=== PATIENT | male | born 1960 | race Caucasian/White ===

== ENCOUNTER 2017-05-01 16:06 | Inpatient (IN) | payer MEDICAID ==
[~2017-05-01] VITALS: Ht 170.2 cm; Wt 105.2 kg
[2017-05-01] MEDS ORDERED: SODIUM CHLORIDE 0.9% 1,000 ML IV ONE (16:17)
[2017-05-01] MEDS ORDERED: SODIUM CHLORIDE FLUSH 10ML SYR IVF ONE (16:30)
[2017-05-01] MEDS ORDERED: CEFTRIAXONE PMX 1GM/50ML 50 ML IVPB ONE (16:30)
[2017-05-01] MEDS ORDERED: CEFTRIAXONE PMX 1GM/50ML 50 ML ONE (16:43)
[2017-05-01 17:05] LABS: BLOOD UREA NITROGEN 15 mg/dL (7-18)
[2017-05-01 17:10] LABS: ASPARTATE AMINO TRANSFERASE 26 U/L (15-37)
[2017-05-01 17:26] LABS: DIFF TOTAL CELLS COUNTED 100 CELL DIFF
[2017-05-01 17:27] LABS: VERIFY COUNTS? YES
[2017-05-01] MEDS ORDERED: SODIUM CHLORIDE FLUSH 10ML SYR IVF PRN (18:30)
[2017-05-01] MEDS ORDERED: NS + 20MEQ KCL 1,000 ML IV SCH (18:38)
[2017-05-01] MEDS ORDERED: POLYETHYLENE GLYCOL 17 GM PACKET PO PRN (19:00)
[2017-05-01] MEDS ORDERED: DOCUSATE 100 MG CAPSULE PO PRN (19:00)
[2017-05-01] MEDS ORDERED: morphine SULFATE 10 MG/ML, 1ML IVPush PRN (19:00)
[2017-05-01] MEDS ORDERED: ACETAMINOPHEN 325 MG TABLET PO PRN (19:00)
[2017-05-01] MEDS ORDERED: ONDANSETRON 2MG/ML, 2ML IVPush PRN (19:00)
[2017-05-01 21:15] VITALS: BP 206/115
[2017-05-01] MEDS: ENOXAPARIN 40 MG/0.4 ML SQ SCH (21:36)
[2017-05-01] MEDS: FUROSEMIDE 40 MG/4 ML IV SCH (21:36)
[2017-05-01] MEDS: AMPICILLIN/SULBACTAM 3 GM in SODIUM CHLORIDE 0.9% 100 ML IV SCH (21:36)
[2017-05-01] MEDS: LABETALOL 5MG/ML, 20ML IVPush PRN (22:00)
[2017-05-01] MEDS ORDERED: POTASSIUM CHLORIDE 20 MEQ TAB.ER.PRT PO ONE (22:30)
[2017-05-02] MEDS: LABETALOL 5MG/ML, 20ML IVPush PRN ×2 (02:52→15:09)
[2017-05-02 02:54] VITALS: BP 196/112
[2017-05-02] MEDS: AMPICILLIN/SULBACTAM 3 GM in SODIUM CHLORIDE 0.9% 100 ML IV SCH ×4 (03:38→21:43)
[2017-05-02] MEDS: HYDROcodone/APAP 5/325 TABLET PO PRN ×3 (03:44→23:39)
[2017-05-02 05:31] LABS: BLOOD UREA NITROGEN 17 mg/dL (7-18)
[2017-05-02 06:37] VITALS: BP 157/96
[2017-05-02] MEDS ORDERED: POTASSIUM CHLORIDE 20 MEQ TAB.ER.PRT PO ONE ×2 (08:30→18:00)
[2017-05-02] MEDS ORDERED: MAGNESIUM SULFATE PMX 4GM/100M 100 ML IV ONE (09:00)
[2017-05-02] MEDS: FUROSEMIDE 40 MG/4 ML IV SCH ×2 (09:27→17:17)
[2017-05-02] MEDS: SENNA/DOCUSATE TABLET PO SCH (09:27)
[2017-05-02 14:15] VITALS: BP 174/99
[2017-05-02 17:14] VITALS: BP 135/76
[2017-05-02 18:45] VITALS: BP 153/92
[2017-05-02] MEDS: ENOXAPARIN 40 MG/0.4 ML SQ SCH (19:38)
[2017-05-03 02:00] VITALS: BP 159/82
[2017-05-03] MEDS: AMPICILLIN/SULBACTAM 3 GM in SODIUM CHLORIDE 0.9% 100 ML IV SCH ×4 (03:39→21:04)
[2017-05-03 06:35] LABS: BLOOD UREA NITROGEN 18 mg/dL (7-18)
[2017-05-03 06:45] VITALS: BP 162/119
[2017-05-03] MEDS: HYDROcodone/APAP 5/325 TABLET PO PRN ×3 (06:47→21:02)
[2017-05-03] MEDS: hydrALAzine 20 MG/ML, 1ML IV PRN (08:47)
[2017-05-03] MEDS: SENNA/DOCUSATE TABLET PO SCH (08:47)
[2017-05-03] MEDS: FUROSEMIDE 40 MG/4 ML IV SCH (08:47)
[2017-05-03] MEDS: POTASSIUM CHLORIDE 20 MEQ TAB.ER.PRT PO SCH ×2 (09:43→16:20)
[2017-05-03 14:00] VITALS: BP 160/93
[2017-05-03 20:35] VITALS: BP 157/100
[2017-05-03] MEDS: ENOXAPARIN 40 MG/0.4 ML SQ SCH (21:04)
[2017-05-04] VITALS (9 sets, daily range): BP systolic 146–178; BP diastolic 86–121
[2017-05-04] MEDS: HYDROcodone/APAP 5/325 TABLET PO PRN ×2 (01:12→10:06)
[2017-05-04] MEDS: AMPICILLIN/SULBACTAM 3 GM in SODIUM CHLORIDE 0.9% 100 ML IV SCH ×4 (03:40→21:05)
[2017-05-04 05:08] LABS: BLOOD UREA NITROGEN 21 mg/dL (7-18)
[2017-05-04] MEDS: SENNA/DOCUSATE TABLET PO SCH (07:53)
[2017-05-04] MEDS: POTASSIUM CHLORIDE 20 MEQ TAB.ER.PRT PO SCH (07:53)
[2017-05-04] MEDS: FUROSEMIDE 40 MG/4 ML IV SCH (07:53)
[2017-05-04] MEDS ORDERED: LISINOPRIL 10 MG TABLET PO SCH (09:00)
[2017-05-04] MEDS: ENALAPRILAT 1.25 MG/ML, 2ML IV PRN ×2 (09:34→15:34)
[2017-05-04] MEDS: hydrALAzine 20 MG/ML, 1ML IV PRN (10:06)
[2017-05-04] MEDS: ENOXAPARIN 40 MG/0.4 ML SQ SCH (21:05)
[2017-05-05 02:18] VITALS: BP 164/111
[2017-05-05] MEDS: HYDROcodone/APAP 5/325 TABLET PO PRN ×3 (02:21→21:18)
[2017-05-05] MEDS: AMPICILLIN/SULBACTAM 3 GM in SODIUM CHLORIDE 0.9% 100 ML IV SCH ×3 (04:27→15:30)
[2017-05-05 05:24] LABS: BLOOD UREA NITROGEN 16 mg/dL (7-18)
[2017-05-05 07:31] VITALS: BP 163/111
[2017-05-05] MEDS: SENNA/DOCUSATE TABLET PO SCH (07:58)
[2017-05-05] MEDS: LISINOPRIL 20 MG TABLET PO SCH (08:00)
[2017-05-05] MEDS ORDERED: VANCOMYCIN PER PHARMACY MC PRN (08:00)
[2017-05-05] MEDS ORDERED: PHARMACOKINETIC CONSULTATION MC ONE (08:30)
[2017-05-05] MEDS ORDERED: PHARMACOKINETIC MONITORING MC PRN (08:30)
[2017-05-05] MEDS ORDERED: VANCOMYCIN 2,000 MG in SODIUM CHLORIDE 0.9% 500 ML IV SCH (09:00)
[2017-05-05] MEDS ORDERED: DIPHENHYDRAMINE 50 MG/ML, 1ML IVPush ONE (12:00)
[2017-05-05 12:44] VITALS: BP 151/82
[2017-05-05] MEDS: CEFTAROLINE 600 MG in SODIUM CHLORIDE 0.9% 100 ML IV SCH (17:29)
[2017-05-05 19:36] VITALS: BP 172/97
[2017-05-05] MEDS: ENOXAPARIN 40 MG/0.4 ML SQ SCH (21:15)
[2017-05-05 21:19] VITALS: BP 165/99
[2017-05-06 02:49] VITALS: BP 169/100
[2017-05-06 05:37] LABS: BLOOD UREA NITROGEN 24 mg/dL (7-18)
[2017-05-06] MEDS: CEFTAROLINE 600 MG in SODIUM CHLORIDE 0.9% 100 ML IV SCH ×2 (06:23→17:19)
[2017-05-06 07:54] VITALS: BP 195/107
[2017-05-06] MEDS: SENNA/DOCUSATE TABLET PO SCH (08:03)
[2017-05-06] MEDS: LISINOPRIL 20 MG TABLET PO SCH ×2 (08:35→20:25)
[2017-05-06] MEDS: AMLODIPINE 5 MG TABLET PO SCH ×2 (10:25→20:25)
[2017-05-06] MEDS: HYDROcodone/APAP 5/325 TABLET PO PRN ×2 (12:06→19:09)
[2017-05-06 12:34] VITALS: BP 133/86
[2017-05-06] MEDS: FUROSEMIDE 20 MG/2 ML IV SCH (19:30)
[2017-05-06 19:47] VITALS: BP 147/88
[2017-05-06] MEDS: ENOXAPARIN 40 MG/0.4 ML SQ SCH (20:25)
[2017-05-07] MEDS: HYDROcodone/APAP 5/325 TABLET PO PRN ×4 (01:30→23:56)
[2017-05-07 03:32] VITALS: BP 133/85
[2017-05-07] MEDS: CEFTAROLINE 600 MG in SODIUM CHLORIDE 0.9% 100 ML IV SCH ×2 (05:46→18:44)
[2017-05-07 07:43] VITALS: BP 142/83
[2017-05-07] MEDS: FUROSEMIDE 20 MG/2 ML IV SCH (09:00)
[2017-05-07] MEDS: SENNA/DOCUSATE TABLET PO SCH (09:00)
[2017-05-07] MEDS: AMLODIPINE 5 MG TABLET PO SCH ×2 (10:21→20:36)
[2017-05-07] MEDS: LISINOPRIL 20 MG TABLET PO SCH ×2 (10:21→20:36)
[2017-05-07 12:27] VITALS: BP 158/96
[2017-05-07 19:15] VITALS: BP 127/82
[2017-05-07] MEDS: ENOXAPARIN 40 MG/0.4 ML SQ SCH (20:36)
[2017-05-08 02:22] VITALS: BP 136/88
[2017-05-08] MEDS: CEFTAROLINE 600 MG in SODIUM CHLORIDE 0.9% 100 ML IV SCH ×2 (05:22→17:23)
[2017-05-08 08:50] VITALS: BP 149/82
[2017-05-08] MEDS: SENNA/DOCUSATE TABLET PO SCH (09:00)
[2017-05-08] MEDS: FUROSEMIDE 20 MG/2 ML IV SCH (09:00)
[2017-05-08] MEDS: LISINOPRIL 20 MG TABLET PO SCH ×2 (09:02→20:47)
[2017-05-08] MEDS: AMLODIPINE 5 MG TABLET PO SCH ×2 (09:02→20:48)
[2017-05-08] MEDS: HYDROcodone/APAP 5/325 TABLET PO PRN ×3 (09:03→20:48)
[2017-05-08 16:50] VITALS: BP 129/80
[2017-05-08] MEDS: ENOXAPARIN 40 MG/0.4 ML SQ SCH (20:50)
[2017-05-08 20:55] VITALS: BP 177/98
[2017-05-09 01:05] VITALS: BP 149/84
[2017-05-09] MEDS: CEFTAROLINE 600 MG in SODIUM CHLORIDE 0.9% 100 ML IV SCH ×2 (05:27→16:59)
[2017-05-09 07:44] VITALS: BP 135/74
[2017-05-09] MEDS: FUROSEMIDE 20 MG/2 ML IV SCH (08:37)
[2017-05-09] MEDS: SENNA/DOCUSATE TABLET PO SCH (08:38)
[2017-05-09] MEDS: LISINOPRIL 20 MG TABLET PO SCH ×2 (08:38→21:25)
[2017-05-09] MEDS: HYDROcodone/APAP 5/325 TABLET PO PRN ×3 (08:38→21:24)
[2017-05-09] MEDS: AMLODIPINE 5 MG TABLET PO SCH ×2 (08:38→21:24)
[2017-05-09 15:04] VITALS: BP 123/83
[2017-05-09 20:00] VITALS: BP 135/73
[2017-05-09] MEDS: ENOXAPARIN 40 MG/0.4 ML SQ SCH (21:24)
[2017-05-10 02:08] VITALS: BP 125/73
[2017-05-10] MEDS: CEFTAROLINE 600 MG in SODIUM CHLORIDE 0.9% 100 ML IV SCH ×2 (05:10→17:25)
[2017-05-10] MEDS: HYDROcodone/APAP 5/325 TABLET PO PRN ×3 (05:19→19:25)
[2017-05-10] MEDS: SENNA/DOCUSATE TABLET PO SCH (09:00)
[2017-05-10] MEDS: FUROSEMIDE 20 MG/2 ML IV SCH (09:00)
[2017-05-10 09:26] VITALS: BP 133/69
[2017-05-10] MEDS: LISINOPRIL 20 MG TABLET PO SCH ×2 (10:26→20:51)
[2017-05-10] MEDS: AMLODIPINE 5 MG TABLET PO SCH ×2 (10:26→20:51)
[2017-05-10 14:09] VITALS: BP 142/70
[2017-05-10 19:52] VITALS: BP 133/76
[2017-05-10] MEDS: ENOXAPARIN 40 MG/0.4 ML SQ SCH (20:52)
[2017-05-10] MEDS ORDERED: ONDANSETRON 2MG/ML, 2ML IVPush PRN (21:00)
[2017-05-10] MEDS ORDERED: POLYETHYLENE GLYCOL 17 GM PACKET PO PRN (21:00)
[2017-05-10] MEDS ORDERED: morphine SULFATE 10 MG/ML, 1ML IVPush PRN (21:00)
[2017-05-10] MEDS ORDERED: DOCUSATE 100 MG CAPSULE PO PRN (21:00)
[2017-05-11] MEDS: HYDROcodone/APAP 5/325 TABLET PO PRN ×3 (01:08→18:10)
[2017-05-11 02:30] VITALS: BP 142/75
[2017-05-11] MEDS: CEFTAROLINE 600 MG in SODIUM CHLORIDE 0.9% 100 ML IV SCH ×2 (05:19→16:49)
[2017-05-11 07:00] VITALS: BP 135/78
[2017-05-11] MEDS: SENNA/DOCUSATE TABLET PO SCH (09:00)
[2017-05-11] MEDS: LISINOPRIL 20 MG TABLET PO SCH ×2 (09:11→21:06)
[2017-05-11] MEDS: FUROSEMIDE 20 MG/2 ML IV SCH (09:11)
[2017-05-11] MEDS: AMLODIPINE 5 MG TABLET PO SCH ×2 (09:11→21:06)
[2017-05-11 13:05] VITALS: BP 128/65
[2017-05-11 18:52] VITALS: BP 128/79
[2017-05-11] MEDS: ENOXAPARIN 40 MG/0.4 ML SQ SCH (21:06)
[2017-05-12] MEDS: HYDROcodone/APAP 5/325 TABLET PO PRN ×4 (00:50→21:40)
[2017-05-12 01:01] VITALS: BP 136/77
[2017-05-12] MEDS: CEFTAROLINE 600 MG in SODIUM CHLORIDE 0.9% 100 ML IV SCH ×2 (04:59→17:17)
[2017-05-12 07:45] VITALS: BP 146/80
[2017-05-12] MEDS: SENNA/DOCUSATE TABLET PO SCH (09:00)
[2017-05-12] MEDS: FUROSEMIDE 20 MG/2 ML IV SCH (09:00)
[2017-05-12] MEDS: AMLODIPINE 5 MG TABLET PO SCH ×2 (09:59→21:40)
[2017-05-12] MEDS: LISINOPRIL 20 MG TABLET PO SCH ×2 (10:00→21:40)
[2017-05-12 14:00] VITALS: BP 106/78
[2017-05-12 17:11] VITALS: BP 121/75
[2017-05-12 18:54] VITALS: BP 133/70
[2017-05-12] MEDS: ENOXAPARIN 40 MG/0.4 ML SQ SCH (21:41)
[2017-05-13 02:59] VITALS: BP 137/79
[2017-05-13] MEDS: CEFTAROLINE 600 MG in SODIUM CHLORIDE 0.9% 100 ML IV SCH (05:03)
[2017-05-13 07:45] VITALS: BP 143/81
[2017-05-13] MEDS: FUROSEMIDE 20 MG/2 ML IV SCH (08:44)
[2017-05-13] MEDS: SENNA/DOCUSATE TABLET PO SCH (08:45)
[2017-05-13] MEDS: AMLODIPINE 5 MG TABLET PO SCH (08:45)
[2017-05-13] MEDS: LISINOPRIL 20 MG TABLET PO SCH (08:45)
[2017-05-13] MEDS: HYDROcodone/APAP 5/325 TABLET PO PRN ×2 (08:45→15:40)
[2017-05-13] MEDS ORDERED: ACET325T14 PO (14:25)
[2017-05-13] MEDS ORDERED: DOCU-30 PO (14:25)
[2017-05-13] MEDS ORDERED: LISI-170 PO (14:25)
[2017-05-13] MEDS ORDERED: MORP10VI10 IVPush (14:25)
[2017-05-13] MEDS ORDERED: SENN1TAB7 PO (14:25)
[2017-05-13] MEDS ORDERED: AMLO5TAB2 PO (14:25)
[2017-05-13] MEDS ORDERED: FURO-92 PO (14:25)
[2017-05-13] MEDS ORDERED: POLY17PO5 PO (14:25)
[2017-05-13] MEDS ORDERED: ENOX40SY4 SQ (14:25)
[2017-05-13] MEDS ORDERED: HYDR-3240 PO (14:25)
[2017-05-13] MEDS ORDERED: MULT-412 PO (14:27)
[2017-05-13] MEDS ORDERED: CEFT600V IV (14:34)
[2017-05-13 14:40] VITALS: BP 117/76
== END 2017-05-13 17:08 | DRG 871 ==
LOC: ED 18:10 → EDIP 18:11 → SUATTDRO 18:37 → ED 18:37 → 3NE 18:50
PROVIDERS: ADMIT Family Medicine; ATTEND Family Medicine
DX: A41.9 Sepsis, unspecified organism (principal); E43 Unspecified severe protein-calorie malnutrition; L03.116 Cellulitis of left lower limb; I16.0 Hypertensive urgency; E66.01 Morbid (severe) obesity due to excess calories; E87.6 Hypokalemia; F10.21 Alcohol dependence, in remission; I10 Essential (primary) hypertension; Z83.3 Family history of diabetes mellitus; Z68.36 Body mass index [BMI] 36.0-36.9, adult; Z87.891 Personal history of nicotine dependence
CPT/HCPCS: 36415; 80048; 80053; 83605; 83735; 83880; 84439; 84443; 85025; 85610; 85730; 87040; 93005; 99285; C8929; J0295; J0696; J0712; J1650; J1940; J3370; J3480; J0360; J1200; J3475; J7030; J7040

== ENCOUNTER 2018-02-05 04:14 | Inpatient (IN) | payer MEDICAID ==
[~2018-02-05] VITALS: Ht 170.2 cm; Wt 98.4 kg
[~2018-02-05 04:14] MED LIST: ACET325T14 PO; AMLO5TAB2 PO; CEFT600V IV; DOCU-131 PO; ENOX40SY4 SQ; FURO-92 PO; HYDR-3240 PO; LISI-170 PO; MORP10VI10 IVPush; MULT-412 PO; POLY17PO5 PO; SENN1TAB7 PO
[2018-02-05] MEDS ORDERED: ASPIRIN 81 MG TABLET CHEW ONE (04:41)
[2018-02-05] MEDS ORDERED: METOPROLOL 1 MG/ML, 5ML ONE (04:41)
[2018-02-05] MEDS: METOPROLOL 1 MG/ML, 5ML IVPush PRN ×3 (04:49→05:56)
[2018-02-05] MEDS ORDERED: SODIUM CHLORIDE 0.9% 1,000ML IVBOLUS ONE (05:00)
[2018-02-05] MEDS ORDERED: ASPIRIN 81 MG TABLET CHEW PO ONE (05:00)
[2018-02-05] MEDS ORDERED: METOPROLOL 1 MG/ML, 5ML IVPush ONE (05:00)
[2018-02-05 05:12] LABS: BASOPHILS # (AUTO) 0.02 x10^3/uL (0-0.1); BASOPHILS % (AUTO) 0 % (0-1); EOSINOPHILS # (AUTO) 0.03 x10^3/uL (0-0.4); EOSINOPHILS % (AUTO) 0 % (1-7); LYMPHOCYTES # (AUTO) 1.04 x10^3/uL (1-3.4); LYMPHOCYTES % (AUTO) 12 % (22-44); MD NO; MEAN CORPUSCULAR HEMOGLOBIN 28.3 pg (27.5-34.5); MEAN CORPUSCULAR VOLUME 88.3 fL (81-97); MEAN PLATELET VOLUME 7.6 fL (7.4-10.4); MONOCYTES # (AUTO) 0.48 x10^3/uL (0.2-0.8); MONOCYTES % (AUTO) 6 % (2-9); NEUTROPHILS # (AUTO) 7.05 x10^3/uL (1.8-6.8); NEUTROPHILS % (AUTO) 82 % (42-75); PLATELET COUNT 240 x10^3/uL (130-400); RED CELL DISTRIBUTION WIDTH 19.1 % (9.4-14.8)
[2018-02-05 05:16] LABS: INTERNATIONAL NORMALIZED RATIO 1.27 (0.93-1.1)
[2018-02-05 05:22] LABS: ALBUMIN 1.9 g/dL (3.4-5.0); ANION GAP 11 mmol/L (5-15); CALCIUM 8.4 mg/dL (8.5-10.1); CHLORIDE 109 mmol/L (98-107); CREATININE 2.08 mg/dL (0.7-1.3)
[2018-02-05 05:26] LABS: TROPONIN I 0.116 ng/mL (0.000-0.045)
[2018-02-05] MEDS ORDERED: FUROSEMIDE 40 MG/4 ML ONE (05:52)
[2018-02-05] MEDS ORDERED: VERAPAMIL 2.5 MG/ML, 2ML ONE ×3 (05:52→09:02)
[2018-02-05] MEDS ORDERED: NITROGLYCERIN OINT 2%, 1GM TP ONE ×2 (05:53→06:00)
[2018-02-05] MEDS ORDERED: FUROSEMIDE 40 MG/4 ML IV ONE (06:00)
[2018-02-05] MEDS ORDERED: VERAPAMIL 2.5 MG/ML, 2ML IVPush ONE ×3 (06:00→08:30)
[2018-02-05] MEDS ORDERED: LORazepam 2 MG/ML, 1ML IVPush PRN (07:30)
[2018-02-05] MEDS ORDERED: LORazepam 2 MG/ML, 1ML ONE ×2 (07:36→09:03)
[2018-02-05] MEDS ORDERED: LORazepam 2 MG/ML, 1ML IVPush ONE (08:30)
[2018-02-05] MEDS ORDERED: VERAPAMIL 50 MG in SODIUM CHLORIDE 0.9% 80 ML IV ONE (09:00)
[2018-02-05] MEDS ORDERED: NOREPINEPHRINE 4 MG in SODIUM CHLORIDE 0.9% 246 ML IV ONE (10:13)
[2018-02-05] MEDS ORDERED: ONDANSETRON ODT 4 MG PO PRN (11:00)
[2018-02-05] MEDS ORDERED: ACETAMINOPHEN 325 MG TABLET PO PRN (11:00)
[2018-02-05] MEDS ORDERED: AMPICILLIN/SULBACTAM 3 GM in SODIUM CHLORIDE 0.9% 100 ML IV SCH (11:00)
[2018-02-05] MEDS ORDERED: MIDAZOLAM HCL 25 MG in SODIUM CHLORIDE 0.9% 245 ML IV PRN (11:00)
[2018-02-05] MEDS ORDERED: POLYETHYLENE GLYCOL 17 GM PACKET PO PRN (11:00)
[2018-02-05] MEDS ORDERED: LABETALOL 5MG/ML, 20ML IVPush PRN (11:00)
[2018-02-05] MEDS ORDERED: DIGOXIN 0.25 MG/ML, 2ML IVPush ONE ×2 (11:00→16:00)
[2018-02-05] MEDS ORDERED: morphine SULFATE 10 MG/ML, 1ML IVPush PRN (11:00)
[2018-02-05] MEDS ORDERED: HEPARIN 5,000 UNITS/ML, 1ML ONE (11:33)
[2018-02-05] MEDS ORDERED: DIGOXIN 0.25 MG/ML, 2ML ONE (11:33)
[2018-02-05] MEDS: HEPARIN 5,000 UNITS/ML, 1ML SQ SCH ×2 (11:57→16:05)
[2018-02-05 12:23] LABS: THYROID STIMULATING HORMONE 3.9 mIU/L (0.358-3.740)
[2018-02-05] MEDS ORDERED: VANCOMYCIN PER PHARMACY MC PRN (14:00)
[2018-02-05] MEDS ORDERED: VECURONIUM 10 MG IVPush ONE (14:00)
[2018-02-05] MEDS ORDERED: PLEASE ENTER WEIGHT MC SCH (14:30)
[2018-02-05] MEDS: PIPERACILLIN/TAZO/PMX 3.375GM 50 ML IV SCH ×2 (14:46→20:44)
[2018-02-05 14:52] LABS: CULTURE INDICATED? YES; MICROSCOPIC INDICATED
[2018-02-05 15:01] LABS: AMPHETAMINE SCREEN, URINE Positive (Negative); BARBITURATE SCREEN, URINE Negative (Negative); BENZODIAZEPINE SCREEN, URINE Negative (Negative); CANNABINOID SCREEN, URINE Negative (Negative); CHLORIDE,URINE RANDOM 28 mmol/L; COCAINE SCREEN, URINE Negative (Negative); METHADONE SCREEN, URINE Negative (Negative); OPIATE SCREEN, URINE Negative (Negative); POTASSIUM,URINE RANDOM 45 mmol/L; SODIUM,URINE RANDOM 15 mmol/L
[2018-02-05] MEDS ORDERED: NOREPINEPHRINE 4 MG in SODIUM CHLORIDE 0.9% 246 ML IV PRN (15:25)
[2018-02-05] MEDS ORDERED: PHARMACY MAY ADJ FOR RENAL FX MC SCH (15:30)
[2018-02-05] MEDS ORDERED: SODIUM CHLORIDE 0.9%, 500ML IV ONE (15:30)
[2018-02-05] MEDS ORDERED: BISACODYL 10 MG SUPP PR PRN (15:30)
[2018-02-05] MEDS ORDERED: DEXTROSE 50%, 50ML SYRINGE IVPush PRN (15:30)
[2018-02-05] MEDS ORDERED: LIDOCAINE-MPF 1%, 2ML ENDO PRN (15:30)
[2018-02-05] MEDS ORDERED: LACTULOSE 20 GM/30 ML UDC NG PRN (15:30)
[2018-02-05] MEDS ORDERED: FAMOTIDINE 20 MG/2 ML IV SCH (15:30)
[2018-02-05] MEDS ORDERED: SODIUM CHLORIDE 0.9%, 500ML IVBOLUS ONE (15:30)
[2018-02-05] MEDS ORDERED: SENNA/DOCUSATE TABLET NG PRN (15:30)
[2018-02-05] MEDS ORDERED: PHARMACOKINETIC MONITORING MC PRN (15:30)
[2018-02-05] MEDS ORDERED: PHARMACOKINETIC CONSULTATION MC ONE (15:30)
[2018-02-05] MEDS ORDERED: SENNOSIDES 8.8 MG/5 ML ORAL SOL NG PRN (15:30)
[2018-02-05] MEDS ORDERED: DEXTROSE 4 GM TAB.CHEW PO PRN (15:30)
[2018-02-05] MEDS ORDERED: VANCOMYCIN 2,000 MG in SODIUM CHLORIDE 0.9% 500 ML IV SCH (15:30)
[2018-02-05] MEDS ORDERED: GLUCAGON 1 MG IM PRN (15:30)
[2018-02-05] MEDS ORDERED: ALBUTEROL/IPRATROPIUM 2.5MG/0.5MG, 3 ML ONE (15:43)
[2018-02-05] MEDS: ALBUTEROL/IPRATROPIUM 2.5MG/0.5MG, 3 ML INLINE SCH ×3 (15:43→23:30)
[2018-02-05] MEDS ORDERED: SODIUM BICARB 8.4%, 50ML SYRINGE ONE ×2 (15:56)
[2018-02-05] MEDS ORDERED: SODIUM BICARB 8.4%, 50ML SYRINGE IVPush ONE ×2 (16:30)
[2018-02-05] MEDS ORDERED: FUROSEMIDE 40 MG/4 ML IV SCH (17:00)
[2018-02-05] MEDS ORDERED: NOREPINEPHRINE 8 MG in SODIUM CHLORIDE 0.9% 246 ML IV PRN (17:01)
[2018-02-05] MEDS: SODIUM BICARBONATE 8.4% 150 MEQ in DEXTROSE 5% 1,000 ML IV SCH (17:20)
[2018-02-05] MEDS ORDERED: OMNIPAQUE 350 MG/ML, 50 ML BOTTLE ONE (18:00)
[2018-02-05] MEDS: MIDAZOLAM HCL 25 MG in SODIUM CHLORIDE 0.9% 245 ML IV PRN (18:06)
[2018-02-05 20:03] VITALS: BP 122/56
[2018-02-05 20:11] LABS: TROPONIN I 0.191 ng/mL (0.000-0.045)
[2018-02-05] MEDS: SODIUM CHLORIDE FLUSH 10ML SYR IVF SCH (20:44)
[2018-02-05] MEDS ORDERED: FAMOTIDINE 20 MG/2 ML IVPush SCH (21:00)
[2018-02-05] MEDS: LACTULOSE 10 GM/15 ML UDC PO SCH (21:47)
[2018-02-05] MEDS: LINEZOLID PMX 600MG/300ML 300 ML IV SCH (21:47)
[2018-02-06] MEDS: MIDAZOLAM HCL 25 MG in SODIUM CHLORIDE 0.9% 245 ML IV PRN (00:15)
[2018-02-06] MEDS: SODIUM BICARBONATE 8.4% 150 MEQ in DEXTROSE 5% 1,000 ML IV SCH ×3 (00:15→22:11)
[2018-02-06] MEDS: PIPERACILLIN/TAZO/PMX 3.375GM 50 ML IV SCH ×4 (02:34→20:51)
[2018-02-06] MEDS: ALBUTEROL/IPRATROPIUM 2.5MG/0.5MG, 3 ML INLINE SCH ×5 (03:30→22:00)
[2018-02-06 04:30] VITALS: BP 125/50
[2018-02-06 04:30] LABS: MEAN CORPUSCULAR HEMOGLOBIN 28.3 pg (27.5-34.5); MEAN CORPUSCULAR HGB CONC 31.9 g/dL (33.2-36.2); MEAN CORPUSCULAR VOLUME 88.6 fL (81-97); MEAN PLATELET VOLUME 7.9 fL (7.4-10.4); PLATELET COUNT 193 x10^3/uL (130-400); RED BLOOD COUNT 4.38 x10^6/uL (4.38-5.82); RED CELL DISTRIBUTION WIDTH 18.8 % (9.4-14.8)
[2018-02-06 04:39] LABS: ALBUMIN 1.4 g/dL (3.4-5.0); ANION GAP 12 mmol/L (5-15); CALCIUM 7.4 mg/dL (8.5-10.1); CHLORIDE 107 mmol/L (98-107); CREATININE 2.75 mg/dL (0.7-1.3)
[2018-02-06 04:41] LABS: MD YES
[2018-02-06 04:43] LABS: BANDS%(MANUAL) 5 % (0-7); LYMPH#(MANUAL) 0.96 x10^3/uL (1-3.4); LYMPHS% (MANUAL) 6 % (22-44); SEG#(MANUAL) 14.24 x10^3/uL (1.8-6.8); SEGS% (MANUAL) 89 % (42-75)
[2018-02-06 04:44] LABS: <PLATELET ESTIMATE> ADEQUATE; <PLT MORPHOLOGY> NORMAL PLT MORPH; ANISOCYTOSIS 1+; POLYCHROMASIA 1+
[2018-02-06 04:53] LABS: ALANINE AMINOTRANSFERASE 1565 U/L (12-78); ALKALINE PHOSPHATASE 269 U/L (45-117); BILIRUBIN,TOTAL 2.2 mg/dL (0.2-1.0); HDL CHOLESTEROL (DIRECT) 14 mg/dL (40-60); TOTAL PROTEIN 5.5 g/dL (6.4-8.2); TRIGLYCERIDES 62 mg/dL (50-200); VLDL CHOLESTEROL 12 mg/dL (0-25)
[2018-02-06 05:10] LABS: CHOL/HDL RATIO 3.6; CHOLESTEROL, TOTAL < 50 mg/dL (140-239); HDL CHOL % 0 % (26-37); LDL CHOLESTEROL,CALCULATED 24 mg/dL (54-169); LDL/HDL RATIO 1.7 (0.5-3.0)
[2018-02-06] MEDS ORDERED: MAGNESIUM SULFATE PMX 2GM/50ML 50 ML IV ONE (07:30)
[2018-02-06] MEDS ORDERED: METOPROLOL 1 MG/ML, 5ML IVPush PRN (08:00)
[2018-02-06] MEDS: METOPROLOL 1 MG/ML, 5ML IVPush PRN (08:08)
[2018-02-06] MEDS: ALBUMIN HUMAN 25% 100 ML IV SCH ×2 (08:16→15:17)
[2018-02-06] MEDS: SODIUM CHLORIDE FLUSH 10ML SYR IVF SCH ×2 (08:18→22:11)
[2018-02-06] MEDS: LINEZOLID PMX 600MG/300ML 300 ML IV SCH ×2 (08:44→22:10)
[2018-02-06] MEDS: FAMOTIDINE 20 MG/2 ML IVPush SCH (08:56)
[2018-02-06] MEDS: LACTULOSE 10 GM/15 ML UDC PO SCH ×2 (08:56→20:53)
[2018-02-06] MEDS: SENNA/DOCUSATE TABLET PO SCH (08:57)
[2018-02-06] MEDS ORDERED: POTASSIUM CHLORIDE 10% 40 MEQ/30 ML UDC ONE (08:59)
[2018-02-06] MEDS ORDERED: POTASSIUM CHLORIDE 10% 40 MEQ/30 ML UDC PO SCH (09:00)
[2018-02-06] MEDS: MIDAZOLAM HCL 50 MG in SODIUM CHLORIDE 0.9% 240 ML IV PRN ×2 (12:19→22:10)
[2018-02-06] MEDS ORDERED: VECURONIUM 10 MG ONE (14:00)
[2018-02-06] MEDS ORDERED: PROPOFOL 10 MG/ML, 100ML IV ONE (18:00)
[2018-02-06] MEDS ORDERED: ETOMIDATE 20 MG/10 ML ONE (18:00)
[2018-02-06] MEDS ORDERED: SUCCINYLCHOLINE 20 MG/ML, 10ML ONE (18:00)
[2018-02-07] MEDS: ALBUMIN HUMAN 25% 100 ML IV SCH ×4 (00:10→21:59)
[2018-02-07] MEDS: ALBUTEROL/IPRATROPIUM 2.5MG/0.5MG, 3 ML INLINE SCH ×6 (02:00→22:45)
[2018-02-07] MEDS: PIPERACILLIN/TAZO/PMX 3.375GM 50 ML IV SCH ×4 (02:00→20:48)
[2018-02-07 04:00] VITALS: BP 96/61
[2018-02-07 04:11] LABS: BASOPHILS % (AUTO) 0 % (0-1); EOSINOPHILS # (AUTO) 0.06 x10^3/uL (0-0.4); EOSINOPHILS % (AUTO) 1 % (1-7); LYMPHOCYTES % (AUTO) 6 % (22-44); MD NO; MEAN CORPUSCULAR HEMOGLOBIN 28.1 pg (27.5-34.5); MEAN CORPUSCULAR HGB CONC 32.2 g/dL (33.2-36.2); MEAN CORPUSCULAR VOLUME 87.3 fL (81-97); MEAN PLATELET VOLUME 8.2 fL (7.4-10.4); MONOCYTES # (AUTO) 0.19 x10^3/uL (0.2-0.8); MONOCYTES % (AUTO) 2 % (2-9); NEUTROPHILS # (AUTO) 11.46 x10^3/uL (1.8-6.8); NEUTROPHILS % (AUTO) 92 % (42-75); PLATELET COUNT 199 x10^3/uL (130-400); RED CELL DISTRIBUTION WIDTH 18.9 % (9.4-14.8)
[2018-02-07 04:17] LABS: ANION GAP 11 mmol/L (5-15); CALCIUM 6.9 mg/dL (8.5-10.1); CHLORIDE 104 mmol/L (98-107); CREATININE 2.75 mg/dL (0.7-1.3)
[2018-02-07 04:22] LABS: OCCULT BLOOD POSITIVE (NEGATIVE)
[2018-02-07 04:33] LABS: ALANINE AMINOTRANSFERASE 1599 U/L (12-78); ALKALINE PHOSPHATASE 222 U/L (45-117); BILIRUBIN,TOTAL 2.4 mg/dL (0.2-1.0); TOTAL PROTEIN 5.2 g/dL (6.4-8.2)
[2018-02-07] MEDS ORDERED: MAGNESIUM SULFATE PMX 4GM/100M 100 ML IV ONE (07:30)
[2018-02-07] MEDS: MIDAZOLAM HCL 50 MG in SODIUM CHLORIDE 0.9% 240 ML IV PRN (07:52)
[2018-02-07] MEDS: SENNA/DOCUSATE TABLET PO SCH (09:00)
[2018-02-07] MEDS: SODIUM CHLORIDE FLUSH 10ML SYR IVF SCH ×2 (09:13→20:48)
[2018-02-07] MEDS: LACTULOSE 10 GM/15 ML UDC PO SCH ×2 (09:13→20:48)
[2018-02-07] MEDS: FAMOTIDINE 20 MG/2 ML IVPush SCH (09:13)
[2018-02-07] MEDS: POTASSIUM CHLORIDE 10% 20 MEQ/15 ML UDC PO SCH ×2 (09:13→20:48)
[2018-02-07] MEDS: FUROSEMIDE 100 MG in SODIUM CHLORIDE 0.9% 90 ML IV SCH (09:13)
[2018-02-07] MEDS ORDERED: CALCIUM GLUCONATE 4.6 MEQ in SODIUM CHLORIDE 0.9% 50 ML IV ONE (10:00)
[2018-02-07] MEDS: LINEZOLID PMX 600MG/300ML 300 ML IV SCH ×2 (10:01→20:48)
[2018-02-07] MEDS: METOCLOPRAMIDE 5 MG/ML, 2ML IVPush SCH ×3 (11:40→21:58)
[2018-02-07] MEDS ORDERED: ERGOCALCIFEROL 50,000 UNIT CAPSULE PO SCH (12:30)
[2018-02-08] MEDS ORDERED: POTASSIUM CHLORIDE PMX 100 ML IV ONE ×4 (01:30→23:30)
[2018-02-08] MEDS: PIPERACILLIN/TAZO/PMX 3.375GM 50 ML IV SCH ×4 (01:56→19:46)
[2018-02-08] MEDS: ALBUTEROL/IPRATROPIUM 2.5MG/0.5MG, 3 ML INLINE SCH ×6 (02:36→22:00)
[2018-02-08] MEDS: FUROSEMIDE 100 MG in SODIUM CHLORIDE 0.9% 90 ML IV SCH (04:14)
[2018-02-08 04:25] LABS: BASOPHILS # (AUTO) 0.01 x10^3/uL (0-0.1); BASOPHILS % (AUTO) 0 % (0-1); EOSINOPHILS # (AUTO) 0.09 x10^3/uL (0-0.4); EOSINOPHILS % (AUTO) 1 % (1-7); LYMPHOCYTES # (AUTO) 0.98 x10^3/uL (1-3.4); LYMPHOCYTES % (AUTO) 11 % (22-44); MD NO; MEAN CORPUSCULAR HEMOGLOBIN 28.5 pg (27.5-34.5); MEAN CORPUSCULAR HGB CONC 32.7 g/dL (33.2-36.2); MEAN CORPUSCULAR VOLUME 87.2 fL (81-97); MEAN PLATELET VOLUME 8.1 fL (7.4-10.4); MONOCYTES # (AUTO) 0.18 x10^3/uL (0.2-0.8); MONOCYTES % (AUTO) 2 % (2-9); NEUTROPHILS # (AUTO) 7.84 x10^3/uL (1.8-6.8); NEUTROPHILS % (AUTO) 86 % (42-75); PLATELET COUNT 218 x10^3/uL (130-400); RED BLOOD COUNT 3.92 x10^6/uL (4.38-5.82); RED CELL DISTRIBUTION WIDTH 19.1 % (9.4-14.8)
[2018-02-08 04:35] LABS: ALBUMIN 2.5 g/dL (3.4-5.0); ANION GAP 11 mmol/L (5-15); CALCIUM 7.9 mg/dL (8.5-10.1); CHLORIDE 104 mmol/L (98-107); CREATININE 2.94 mg/dL (0.7-1.3); TRIGLYCERIDES 99 mg/dL (50-200)
[2018-02-08 04:42] LABS: ALANINE AMINOTRANSFERASE 1094 U/L (12-78); ALKALINE PHOSPHATASE 202 U/L (45-117); BILIRUBIN,TOTAL 3.3 mg/dL (0.2-1.0); TOTAL PROTEIN 5.7 g/dL (6.4-8.2)
[2018-02-08] MEDS: METOCLOPRAMIDE 5 MG/ML, 2ML IVPush SCH ×4 (05:31→23:41)
[2018-02-08] MEDS: SODIUM CHLORIDE FLUSH 10ML SYR IVF SCH ×2 (08:46→21:06)
[2018-02-08] MEDS: SENNA/DOCUSATE TABLET PO SCH (09:00)
[2018-02-08] MEDS: LACTULOSE 10 GM/15 ML UDC PO SCH ×2 (09:21→21:06)
[2018-02-08] MEDS: POTASSIUM CHLORIDE 10% 20 MEQ/15 ML UDC PO SCH ×2 (09:21→21:06)
[2018-02-08] MEDS: FAMOTIDINE 20 MG/2 ML IVPush SCH (09:21)
[2018-02-08] MEDS: LINEZOLID PMX 600MG/300ML 300 ML IV SCH (09:21)
[2018-02-08] MEDS: KSCALE TO 4.0 IV SCH ×3 (10:30→22:30)
[2018-02-08 10:34] LABS: CREATININE,URINE RANDOM 36.4 mg/dL
[2018-02-08] MEDS: THIAMINE 100MG TABLET PO SCH (11:09)
[2018-02-08] MEDS: FOLIC ACID 1 MG TABLET PO SCH (11:09)
[2018-02-08] MEDS ORDERED: ERGOCALCIFEROL 50,000 UNIT CAPSULE PO SCH (12:30)
[2018-02-08] MEDS: FENTANYL PF 100 MCG/2ML IVPush PRN ×5 (16:41→22:21)
[2018-02-08] MEDS ORDERED: POTASSIUM CHLORIDE 10 MEQ in SODIUM CHLORIDE 0.9% 250 ML IV ONE ×2 (18:30)
[2018-02-08] MEDS: PROPOFOL 100 ML IV PRN (22:59)
[2018-02-08] MEDS ORDERED: AMIODARONE 150 MG in DEXTROSE 5% 100 ML IV ONE (23:30)
[2018-02-08] MEDS: POTASSIUM CHLORIDE 10 MEQ in SODIUM CHLORIDE 0.9% 250 ML IV ONE ×2 (23:40→23:44)
[2018-02-09] MEDS: AMIODARONE 900 MG in DEXTROSE 5% 482 ML IV PRN ×2 (00:15→23:21)
[2018-02-09] MEDS: ALBUTEROL/IPRATROPIUM 2.5MG/0.5MG, 3 ML INLINE SCH ×6 (02:40→22:12)
[2018-02-09] MEDS: PIPERACILLIN/TAZO/PMX 3.375GM 50 ML IV SCH ×4 (02:47→21:22)
[2018-02-09 04:27] LABS: BASOPHILS # (AUTO) 0.01 x10^3/uL (0-0.1); BASOPHILS % (AUTO) 0 % (0-1); EOSINOPHILS # (AUTO) 0.16 x10^3/uL (0-0.4); EOSINOPHILS % (AUTO) 2 % (1-7); LYMPHOCYTES # (AUTO) 1.15 x10^3/uL (1-3.4); LYMPHOCYTES % (AUTO) 13 % (22-44); MD NO; MEAN CORPUSCULAR HEMOGLOBIN 28.2 pg (27.5-34.5); MEAN CORPUSCULAR HGB CONC 32.3 g/dL (33.2-36.2); MEAN CORPUSCULAR VOLUME 87.1 fL (81-97); MEAN PLATELET VOLUME 7.8 fL (7.4-10.4); MONOCYTES # (AUTO) 0.12 x10^3/uL (0.2-0.8); MONOCYTES % (AUTO) 1 % (2-9); NEUTROPHILS # (AUTO) 7.52 x10^3/uL (1.8-6.8); NEUTROPHILS % (AUTO) 84 % (42-75); PLATELET COUNT 236 x10^3/uL (130-400); RED BLOOD COUNT 4.32 x10^6/uL (4.38-5.82); RED CELL DISTRIBUTION WIDTH 19.8 % (9.4-14.8)
[2018-02-09 04:33] LABS: ALANINE AMINOTRANSFERASE 884 U/L (12-78); ALBUMIN 2.2 g/dL (3.4-5.0); ANION GAP 9 mmol/L (5-15); CALCIUM 8.1 mg/dL (8.5-10.1); CHLORIDE 108 mmol/L (98-107); CREATININE 3.19 mg/dL (0.7-1.3); IRON LEVEL 49 mcg/dL (65-175)
[2018-02-09 04:35] LABS: % IRON SATURATION 26 % (20-55); ALKALINE PHOSPHATASE 219 U/L (45-117); BILIRUBIN,TOTAL 3.3 mg/dL (0.2-1.0); TOTAL IRON BINDING CAPACITY 188 mcg/dL (250-450)
[2018-02-09 04:58] LABS: HEMOGLOBIN A1C 7.5 % (4.2-6.3)
[2018-02-09] MEDS ORDERED: [UNRECOGNIZED DRUG - REMARK] IV SCH (05:29)
[2018-02-09] MEDS ORDERED: POTASSIUM CHLORIDE 10 MEQ in SODIUM CHLORIDE 0.9% 250 ML IV ONE (05:30)
[2018-02-09] MEDS: METOCLOPRAMIDE 5 MG/ML, 2ML IVPush SCH ×4 (05:36→23:21)
[2018-02-09] MEDS: PROPOFOL 100 ML IV PRN ×2 (06:14→17:29)
[2018-02-09] MEDS ORDERED: KSCALE TO 4.0 MC SCH (08:30)
[2018-02-09] MEDS: FOLIC ACID 1 MG TABLET PO SCH (09:41)
[2018-02-09] MEDS: LACTULOSE 10 GM/15 ML UDC PO SCH ×2 (09:41→21:22)
[2018-02-09] MEDS: SENNA/DOCUSATE TABLET PO SCH (09:41)
[2018-02-09] MEDS: THIAMINE 100MG TABLET PO SCH (09:41)
[2018-02-09] MEDS: FAMOTIDINE 20 MG/2 ML IVPush SCH (09:41)
[2018-02-09] MEDS: METOPROLOL TARTRATE 25 MG TABLET NG SCH ×2 (09:42→17:27)
[2018-02-09] MEDS: SODIUM CHLORIDE FLUSH 10ML SYR IVF SCH ×2 (09:42→21:22)
[2018-02-09] MEDS: FILTER 0.22 MICRON IV PRN (23:22)
[2018-02-10] MEDS: PROPOFOL 100 ML IV PRN ×3 (01:31→22:37)
[2018-02-10] MEDS: PIPERACILLIN/TAZO/PMX 3.375GM 50 ML IV SCH ×4 (01:31→20:18)
[2018-02-10] MEDS: ALBUTEROL/IPRATROPIUM 2.5MG/0.5MG, 3 ML INLINE SCH ×6 (02:12→22:00)
[2018-02-10] MEDS: METOCLOPRAMIDE 5 MG/ML, 2ML IVPush SCH ×4 (03:51→23:45)
[2018-02-10 04:25] LABS: BASOPHILS # (AUTO) 0.02 x10^3/uL (0-0.1); BASOPHILS % (AUTO) 0 % (0-1); EOSINOPHILS # (AUTO) 0.19 x10^3/uL (0-0.4); EOSINOPHILS % (AUTO) 2 % (1-7); LYMPHOCYTES # (AUTO) 1.57 x10^3/uL (1-3.4); LYMPHOCYTES % (AUTO) 16 % (22-44); MD NO; MEAN CORPUSCULAR HEMOGLOBIN 28.1 pg (27.5-34.5); MEAN CORPUSCULAR HGB CONC 32.3 g/dL (33.2-36.2); MEAN PLATELET VOLUME 7.8 fL (7.4-10.4); MONOCYTES # (AUTO) 0.23 x10^3/uL (0.2-0.8); MONOCYTES % (AUTO) 2 % (2-9); NEUTROPHILS % (AUTO) 80 % (42-75); PLATELET COUNT 219 x10^3/uL (130-400); RED BLOOD COUNT 4.43 x10^6/uL (4.38-5.82); RED CELL DISTRIBUTION WIDTH 19.3 % (9.4-14.8)
[2018-02-10 04:36] LABS: ALANINE AMINOTRANSFERASE 640 U/L (12-78); ANION GAP 12 mmol/L (5-15); CALCIUM 7.6 mg/dL (8.5-10.1); CHLORIDE 103 mmol/L (98-107)
[2018-02-10 04:39] LABS: ALKALINE PHOSPHATASE 208 U/L (45-117); BILIRUBIN,TOTAL 2.8 mg/dL (0.2-1.0); TOTAL PROTEIN 6.3 g/dL (6.4-8.2)
[2018-02-10 04:50] LABS: MICROSCOPIC INDICATED
[2018-02-10 05:12] LABS: CULTURE INDICATED? YES
[2018-02-10] MEDS: METOPROLOL TARTRATE 25 MG TABLET NG SCH ×2 (05:26→17:47)
[2018-02-10] MEDS: FAMOTIDINE 20 MG/2 ML IVPush SCH (08:36)
[2018-02-10] MEDS: ERGOCALCIFEROL 50,000 UNIT CAPSULE PO SCH (08:37)
[2018-02-10] MEDS: SODIUM CHLORIDE FLUSH 10ML SYR IVF SCH ×2 (08:37→20:49)
[2018-02-10] MEDS: LACTULOSE 10 GM/15 ML UDC PO SCH ×2 (08:37→20:49)
[2018-02-10] MEDS: FOLIC ACID 1 MG TABLET PO SCH (08:37)
[2018-02-10] MEDS: THIAMINE 100MG TABLET PO SCH (08:39)
[2018-02-10] MEDS: SENNA/DOCUSATE TABLET PO SCH (08:39)
[2018-02-10] MEDS ORDERED: PIPERACILLIN/TAZO/PMX 3.375GM 50 ML IV SCH (14:00)
[2018-02-10] MEDS: PANTOPRAZOLE 40 MG IV IVPush SCH (17:47)
[2018-02-10] MEDS ORDERED: PANTOPRAZOLE 40 MG IV IVPush SCH (21:00)
[2018-02-11] MEDS: PIPERACILLIN/TAZO/PMX 3.375GM 50 ML IV SCH ×4 (01:23→19:28)
[2018-02-11] MEDS: ALBUTEROL/IPRATROPIUM 2.5MG/0.5MG, 3 ML INLINE SCH ×6 (02:14→23:05)
[2018-02-11 04:19] LABS: BASOPHILS % (AUTO) 0 % (0-1); EOSINOPHILS % (AUTO) 2 % (1-7); LYMPHOCYTES # (AUTO) 1.47 x10^3/uL (1-3.4); LYMPHOCYTES % (AUTO) 13 % (22-44); MD NO; MEAN CORPUSCULAR HEMOGLOBIN 27.9 pg (27.5-34.5); MEAN CORPUSCULAR HGB CONC 32.2 g/dL (33.2-36.2); MEAN CORPUSCULAR VOLUME 86.5 fL (81-97); MEAN PLATELET VOLUME 7.5 fL (7.4-10.4); MONOCYTES # (AUTO) 0.44 x10^3/uL (0.2-0.8); MONOCYTES % (AUTO) 4 % (2-9); NEUTROPHILS # (AUTO) 9.03 x10^3/uL (1.8-6.8); NEUTROPHILS % (AUTO) 81 % (42-75); PLATELET COUNT 208 x10^3/uL (130-400); RED BLOOD COUNT 4.53 x10^6/uL (4.38-5.82); RED CELL DISTRIBUTION WIDTH 18.7 % (9.4-14.8)
[2018-02-11 04:27] LABS: INTERNATIONAL NORMALIZED RATIO 1.14 (0.93-1.1); PROTHROMBIN TIME 11.8 Seconds (9.6-11.5)
[2018-02-11 04:32] LABS: ALANINE AMINOTRANSFERASE 469 U/L (12-78); ANION GAP 10 mmol/L (5-15); CALCIUM 8.3 mg/dL (8.5-10.1); CHLORIDE 104 mmol/L (98-107); CREATININE 3.05 mg/dL (0.7-1.3); TRIGLYCERIDES 197 mg/dL (50-200)
[2018-02-11 04:34] LABS: ALKALINE PHOSPHATASE 215 U/L (45-117); BILIRUBIN,TOTAL 2.3 mg/dL (0.2-1.0); TOTAL PROTEIN 6.6 g/dL (6.4-8.2)
[2018-02-11] MEDS: PANTOPRAZOLE 40 MG IV IVPush SCH ×2 (05:09→15:14)
[2018-02-11] MEDS: METOCLOPRAMIDE 5 MG/ML, 2ML IVPush SCH ×4 (05:10→21:23)
[2018-02-11] MEDS: PROPOFOL 100 ML IV PRN ×2 (05:52→13:18)
[2018-02-11] MEDS: METOPROLOL TARTRATE 25 MG TABLET NG SCH ×2 (05:52→17:34)
[2018-02-11] MEDS: SODIUM CHLORIDE FLUSH 10ML SYR IVF SCH ×2 (07:58→21:24)
[2018-02-11] MEDS: FOLIC ACID 1 MG TABLET PO SCH (13:17)
[2018-02-11] MEDS: THIAMINE 100MG TABLET PO SCH (13:17)
[2018-02-11] MEDS: SENNA/DOCUSATE TABLET PO SCH (13:17)
[2018-02-11] MEDS: LACTULOSE 10 GM/15 ML UDC PO SCH ×2 (13:17→21:23)
[2018-02-11] MEDS ORDERED: HEPARIN wt. based STROKE protocol MC PRN (14:30)
[2018-02-11] MEDS: HEPARIN 25,000 UNITS/500ML PMX 500 ML IV PRN (15:25)
[2018-02-12] MEDS: PIPERACILLIN/TAZO/PMX 3.375GM 50 ML IV SCH ×2 (01:21→08:57)
[2018-02-12] MEDS: PROPOFOL 100 ML IV PRN ×3 (01:22→22:15)
[2018-02-12] MEDS: ALBUTEROL/IPRATROPIUM 2.5MG/0.5MG, 3 ML INLINE SCH ×6 (02:46→23:00)
[2018-02-12 04:19] LABS: BASOPHILS # (AUTO) 0.02 x10^3/uL (0-0.1); BASOPHILS % (AUTO) 0 % (0-1); EOSINOPHILS # (AUTO) 0.16 x10^3/uL (0-0.4); EOSINOPHILS % (AUTO) 2 % (1-7); LYMPHOCYTES # (AUTO) 1.37 x10^3/uL (1-3.4); LYMPHOCYTES % (AUTO) 13 % (22-44); MD NO; MEAN CORPUSCULAR HEMOGLOBIN 28.1 pg (27.5-34.5); MEAN CORPUSCULAR HGB CONC 32.5 g/dL (33.2-36.2); MEAN CORPUSCULAR VOLUME 86.7 fL (81-97); MEAN PLATELET VOLUME 7.6 fL (7.4-10.4); MONOCYTES % (AUTO) 4 % (2-9); NEUTROPHILS # (AUTO) 8.61 x10^3/uL (1.8-6.8); NEUTROPHILS % (AUTO) 82 % (42-75); PLATELET COUNT 183 x10^3/uL (130-400); RED BLOOD COUNT 4.48 x10^6/uL (4.38-5.82); RED CELL DISTRIBUTION WIDTH 18.4 % (9.4-14.8)
[2018-02-12 04:30] LABS: ANION GAP 11 mmol/L (5-15); CHLORIDE 102 mmol/L (98-107)
[2018-02-12 04:33] LABS: ALANINE AMINOTRANSFERASE 335 U/L (12-78); ALKALINE PHOSPHATASE 196 U/L (45-117); BILIRUBIN,TOTAL 2.4 mg/dL (0.2-1.0); CREATININE 2.69 mg/dL (0.7-1.3); TOTAL PROTEIN 6.7 g/dL (6.4-8.2)
[2018-02-12] MEDS: METOCLOPRAMIDE 5 MG/ML, 2ML IVPush SCH ×4 (04:37→22:14)
[2018-02-12] MEDS: PANTOPRAZOLE 40 MG IV IVPush SCH ×2 (04:37→20:58)
[2018-02-12] MEDS: AMIODARONE 450 MG in DEXTROSE 5% 241 ML IV PRN ×2 (04:38→21:03)
[2018-02-12] MEDS: METOPROLOL TARTRATE 25 MG TABLET NG SCH ×2 (06:01→17:04)
[2018-02-12] MEDS: LACTULOSE 10 GM/15 ML UDC PO SCH ×2 (08:57→20:58)
[2018-02-12] MEDS: SENNA/DOCUSATE TABLET PO SCH (08:57)
[2018-02-12] MEDS: FUROSEMIDE 40 MG/4 ML IV SCH ×2 (08:57→17:04)
[2018-02-12] MEDS: POTASSIUM CHLORIDE 20 MEQ PACKET NG SCH ×2 (08:57→17:04)
[2018-02-12] MEDS: SODIUM CHLORIDE FLUSH 10ML SYR IVF SCH ×2 (08:57→20:58)
[2018-02-12] MEDS: FOLIC ACID 1 MG TABLET PO SCH (08:58)
[2018-02-12] MEDS: THIAMINE 100MG TABLET PO SCH (08:58)
[2018-02-12] MEDS: HEPARIN 25,000 UNITS/500ML PMX 500 ML IV PRN (14:48)
[2018-02-12] MEDS: FENTANYL PF 100 MCG/2ML IVPush PRN (15:32)
[2018-02-12] MEDS ORDERED: PANTOPROZOLE 40MG TABLET PO SCH (21:00)
[2018-02-13] MEDS: PROPOFOL 100 ML IV PRN ×4 (02:45→21:15)
[2018-02-13] MEDS: ALBUTEROL/IPRATROPIUM 2.5MG/0.5MG, 3 ML INLINE SCH ×6 (02:54→23:00)
[2018-02-13] MEDS: METOCLOPRAMIDE 5 MG/ML, 2ML IVPush SCH (04:18)
[2018-02-13 05:57] LABS: BASOPHILS # (AUTO) 0.02 x10^3/uL (0-0.1); BASOPHILS % (AUTO) 0 % (0-1); EOSINOPHILS % (AUTO) 2 % (1-7); LYMPHOCYTES # (AUTO) 1.64 x10^3/uL (1-3.4); LYMPHOCYTES % (AUTO) 17 % (22-44); MD NO; MEAN CORPUSCULAR HEMOGLOBIN 28.6 pg (27.5-34.5); MEAN CORPUSCULAR HGB CONC 32.7 g/dL (33.2-36.2); MEAN CORPUSCULAR VOLUME 87.3 fL (81-97); MEAN PLATELET VOLUME 7.3 fL (7.4-10.4); MONOCYTES # (AUTO) 0.51 x10^3/uL (0.2-0.8); MONOCYTES % (AUTO) 5 % (2-9); NEUTROPHILS # (AUTO) 7.07 x10^3/uL (1.8-6.8); NEUTROPHILS % (AUTO) 75 % (42-75); PLATELET COUNT 171 x10^3/uL (130-400); RED CELL DISTRIBUTION WIDTH 18.5 % (9.4-14.8)
[2018-02-13 06:10] LABS: ALBUMIN 1.9 g/dL (3.4-5.0); ANION GAP 9 mmol/L (5-15); CALCIUM 8.4 mg/dL (8.5-10.1); CHLORIDE 103 mmol/L (98-107)
[2018-02-13 06:14] LABS: ALANINE AMINOTRANSFERASE 247 U/L (12-78); ALKALINE PHOSPHATASE 159 U/L (45-117); BILIRUBIN,TOTAL 2.2 mg/dL (0.2-1.0); CREATININE 2.52 mg/dL (0.7-1.3); TOTAL PROTEIN 6.6 g/dL (6.4-8.2)
[2018-02-13] MEDS: METOPROLOL TARTRATE 25 MG TABLET NG SCH (06:21)
[2018-02-13] MEDS: HEPARIN 25,000 UNITS/500ML PMX 500 ML IV PRN (06:25)
[2018-02-13] MEDS: POTASSIUM CHLORIDE 20 MEQ PACKET NG SCH (08:00)
[2018-02-13] MEDS: PANTOPRAZOLE 40 MG IV IVPush SCH ×2 (08:39→20:42)
[2018-02-13] MEDS: SODIUM CHLORIDE FLUSH 10ML SYR IVF SCH ×2 (08:40→20:42)
[2018-02-13] MEDS: LACTULOSE 10 GM/15 ML UDC PO SCH ×2 (09:00→20:42)
[2018-02-13] MEDS: SENNA/DOCUSATE TABLET PO SCH (09:00)
[2018-02-13] MEDS: FUROSEMIDE 40 MG/4 ML IV SCH ×2 (09:46→16:42)
[2018-02-13] MEDS: FOLIC ACID 1 MG TABLET PO SCH (09:55)
[2018-02-13] MEDS: THIAMINE 100MG TABLET PO SCH (09:55)
[2018-02-13 13:53] LABS: INTERNATIONAL NORMALIZED RATIO 1.05 (0.93-1.1); PROTHROMBIN TIME 10.9 Seconds (9.6-11.5)
[2018-02-13] MEDS: METOPROLOL 1 MG/ML, 5ML IVPush SCH ×2 (14:27→20:42)
[2018-02-13] MEDS: OCTREOTIDE 500 MCG in SODIUM CHLORIDE 0.9% 249 ML IV SCH (14:27)
[2018-02-13] MEDS: THIAMINE 200 MG in SODIUM CHLORIDE 0.9% 50 ML IV SCH (14:27)
[2018-02-13] MEDS ORDERED: POTASSIUM CHLORIDE 40 MEQ in SODIUM CHLORIDE 0.9% 500 ML IV ONE (20:00)
[2018-02-13] MEDS ORDERED: MAGNESIUM SULFATE PMX 2GM/50ML 50 ML IV ONE (20:00)
[2018-02-14] MEDS: METOPROLOL 1 MG/ML, 5ML IVPush SCH ×4 (01:41→19:47)
[2018-02-14] MEDS: OCTREOTIDE 500 MCG in SODIUM CHLORIDE 0.9% 249 ML IV SCH ×3 (01:41→22:58)
[2018-02-14] MEDS: ALBUTEROL/IPRATROPIUM 2.5MG/0.5MG, 3 ML INLINE SCH ×6 (03:00→22:50)
[2018-02-14] MEDS: FILTER 0.22 MICRON IV PRN ×2 (04:08→21:42)
[2018-02-14] MEDS: AMIODARONE 450 MG in DEXTROSE 5% 241 ML IV PRN ×2 (04:08→21:42)
[2018-02-14 04:40] LABS: BASOPHILS # (AUTO) 0.02 x10^3/uL (0-0.1); BASOPHILS % (AUTO) 0 % (0-1); EOSINOPHILS # (AUTO) 0.13 x10^3/uL (0-0.4); EOSINOPHILS % (AUTO) 1 % (1-7); LYMPHOCYTES # (AUTO) 2.22 x10^3/uL (1-3.4); LYMPHOCYTES % (AUTO) 24 % (22-44); MD NO; MEAN CORPUSCULAR HEMOGLOBIN 28.7 pg (27.5-34.5); MEAN CORPUSCULAR HGB CONC 32.5 g/dL (33.2-36.2); MEAN CORPUSCULAR VOLUME 88.1 fL (81-97); MEAN PLATELET VOLUME 7.9 fL (7.4-10.4); MONOCYTES # (AUTO) 0.51 x10^3/uL (0.2-0.8); MONOCYTES % (AUTO) 6 % (2-9); NEUTROPHILS # (AUTO) 6.29 x10^3/uL (1.8-6.8); NEUTROPHILS % (AUTO) 69 % (42-75); PLATELET COUNT 190 x10^3/uL (130-400); RED BLOOD COUNT 3.58 x10^6/uL (4.38-5.82); RED CELL DISTRIBUTION WIDTH 18.4 % (9.4-14.8)
[2018-02-14 04:49] LABS: ALBUMIN 1.9 g/dL (3.4-5.0); ANION GAP 7 mmol/L (5-15); CALCIUM 8.4 mg/dL (8.5-10.1); CHLORIDE 105 mmol/L (98-107); CREATININE 2.26 mg/dL (0.7-1.3); TRIGLYCERIDES 225 mg/dL (50-200)
[2018-02-14 04:53] LABS: ALANINE AMINOTRANSFERASE 192 U/L (12-78); ALKALINE PHOSPHATASE 139 U/L (45-117); BILIRUBIN,TOTAL 2.1 mg/dL (0.2-1.0); TOTAL PROTEIN 6.2 g/dL (6.4-8.2)
[2018-02-14] MEDS: PANTOPRAZOLE 40 MG IV IVPush SCH ×2 (07:56→19:47)
[2018-02-14] MEDS: FUROSEMIDE 40 MG/4 ML IV SCH ×2 (07:57→17:48)
[2018-02-14] MEDS: LACTULOSE 10 GM/15 ML UDC PO SCH ×2 (08:01→19:47)
[2018-02-14] MEDS: SODIUM CHLORIDE FLUSH 10ML SYR IVF SCH ×2 (08:01→19:47)
[2018-02-14] MEDS: SENNA/DOCUSATE TABLET PO SCH (08:01)
[2018-02-14] MEDS: ERGOCALCIFEROL 50,000 UNIT CAPSULE PO SCH (08:02)
[2018-02-14] MEDS: PROPOFOL 100 ML IV PRN ×4 (08:10→22:22)
[2018-02-14] MEDS ORDERED: MIDAZOLAM 1 MG/ML, 5ML IVPush PRN (10:30)
[2018-02-14] MEDS: FOLIC ACID 1 MG TABLET PO SCH (10:30)
[2018-02-14] MEDS ORDERED: MIDAZOLAM 1 MG/ML, 2ML ONE ×2 (10:51→10:54)
[2018-02-14] MEDS: THIAMINE 200 MG in SODIUM CHLORIDE 0.9% 50 ML IV SCH (13:21)
[2018-02-15] MEDS: METOPROLOL 1 MG/ML, 5ML IVPush SCH ×3 (00:29→13:00)
[2018-02-15] MEDS: ALBUTEROL/IPRATROPIUM 2.5MG/0.5MG, 3 ML INLINE SCH ×6 (03:00→23:00)
[2018-02-15 04:25] LABS: BASOPHILS # (AUTO) 0.03 x10^3/uL (0-0.1); BASOPHILS % (AUTO) 0 % (0-1); EOSINOPHILS # (AUTO) 0.16 x10^3/uL (0-0.4); EOSINOPHILS % (AUTO) 2 % (1-7); LYMPHOCYTES % (AUTO) 23 % (22-44); MD NO; MEAN CORPUSCULAR HEMOGLOBIN 28.6 pg (27.5-34.5); MEAN CORPUSCULAR HGB CONC 32.3 g/dL (33.2-36.2); MEAN CORPUSCULAR VOLUME 88.3 fL (81-97); MEAN PLATELET VOLUME 7.6 fL (7.4-10.4); MONOCYTES # (AUTO) 0.57 x10^3/uL (0.2-0.8); MONOCYTES % (AUTO) 5 % (2-9); NEUTROPHILS # (AUTO) 7.59 x10^3/uL (1.8-6.8); NEUTROPHILS % (AUTO) 70 % (42-75); PLATELET COUNT 211 x10^3/uL (130-400); RED BLOOD COUNT 3.62 x10^6/uL (4.38-5.82); RED CELL DISTRIBUTION WIDTH 18.5 % (9.4-14.8)
[2018-02-15 04:38] LABS: ALBUMIN 1.9 g/dL (3.4-5.0); ANION GAP 7 mmol/L (5-15); CALCIUM 7.8 mg/dL (8.5-10.1); CHLORIDE 106 mmol/L (98-107)
[2018-02-15 04:42] LABS: ALANINE AMINOTRANSFERASE 161 U/L (12-78); ALKALINE PHOSPHATASE 149 U/L (45-117); BILIRUBIN,TOTAL 1.8 mg/dL (0.2-1.0); CREATININE 1.92 mg/dL (0.7-1.3); TOTAL PROTEIN 6.3 g/dL (6.4-8.2)
[2018-02-15] MEDS: PROPOFOL 100 ML IV PRN ×4 (05:17→20:48)
[2018-02-15] MEDS ORDERED: MAGNESIUM SULFATE PMX 4GM/100M 100 ML IV ONE (06:30)
[2018-02-15] MEDS ORDERED: POTASSIUM CHLORIDE 40 MEQ in SODIUM CHLORIDE 0.9% 500 ML IV ONE (06:30)
[2018-02-15] MEDS: SENNA/DOCUSATE TABLET PO SCH (07:46)
[2018-02-15] MEDS: LACTULOSE 10 GM/15 ML UDC PO SCH ×2 (09:00→22:39)
[2018-02-15] MEDS: FUROSEMIDE 40 MG/4 ML IV SCH ×2 (09:48→17:33)
[2018-02-15] MEDS: PANTOPRAZOLE 40 MG IV IVPush SCH ×2 (09:48→20:47)
[2018-02-15] MEDS: SODIUM CHLORIDE FLUSH 10ML SYR IVF SCH ×2 (09:48→20:47)
[2018-02-15] MEDS: FOLIC ACID 1 MG TABLET PO SCH (09:49)
[2018-02-15] MEDS: OCTREOTIDE 500 MCG in SODIUM CHLORIDE 0.9% 249 ML IV SCH ×2 (11:18→20:47)
[2018-02-15] MEDS: THIAMINE 200 MG in SODIUM CHLORIDE 0.9% 50 ML IV SCH (14:25)
[2018-02-15] MEDS: AMIODARONE 450 MG in DEXTROSE 5% 241 ML IV PRN (15:58)
[2018-02-15] MEDS ORDERED: METOPROLOL 1 MG/ML, 5ML IVPush PRN (19:00)
[2018-02-16] MEDS: ALBUTEROL/IPRATROPIUM 2.5MG/0.5MG, 3 ML INLINE SCH ×3 (03:00→11:00)
[2018-02-16] MEDS: PROPOFOL 100 ML IV PRN (03:30)
[2018-02-16 04:44] LABS: BASOPHILS # (AUTO) 0.03 x10^3/uL (0-0.1); BASOPHILS % (AUTO) 0 % (0-1); EOSINOPHILS # (AUTO) 0.22 x10^3/uL (0-0.4); EOSINOPHILS % (AUTO) 2 % (1-7); LYMPHOCYTES # (AUTO) 2.38 x10^3/uL (1-3.4); LYMPHOCYTES % (AUTO) 24 % (22-44); MD NO; MEAN CORPUSCULAR HEMOGLOBIN 28.9 pg (27.5-34.5); MEAN CORPUSCULAR HGB CONC 33.1 g/dL (33.2-36.2); MEAN CORPUSCULAR VOLUME 87.6 fL (81-97); MEAN PLATELET VOLUME 7.8 fL (7.4-10.4); MONOCYTES # (AUTO) 0.45 x10^3/uL (0.2-0.8); MONOCYTES % (AUTO) 4 % (2-9); NEUTROPHILS # (AUTO) 7.03 x10^3/uL (1.8-6.8); NEUTROPHILS % (AUTO) 70 % (42-75); PLATELET COUNT 209 x10^3/uL (130-400); RED BLOOD COUNT 3.45 x10^6/uL (4.38-5.82); RED CELL DISTRIBUTION WIDTH 19.1 % (9.4-14.8)
[2018-02-16 04:53] LABS: ALBUMIN 1.9 g/dL (3.4-5.0); ANION GAP 6 mmol/L (5-15); CALCIUM 7.9 mg/dL (8.5-10.1); CHLORIDE 109 mmol/L (98-107)
[2018-02-16 04:58] LABS: ALANINE AMINOTRANSFERASE 122 U/L (12-78); ALKALINE PHOSPHATASE 133 U/L (45-117); BILIRUBIN,TOTAL 1.5 mg/dL (0.2-1.0); CREATININE 1.67 mg/dL (0.7-1.3); TOTAL PROTEIN 6.2 g/dL (6.4-8.2)
[2018-02-16] MEDS: OCTREOTIDE 500 MCG in SODIUM CHLORIDE 0.9% 249 ML IV SCH (05:45)
[2018-02-16] MEDS: FILTER 0.22 MICRON IV PRN (05:46)
[2018-02-16] MEDS: AMIODARONE 450 MG in DEXTROSE 5% 241 ML IV PRN (05:46)
[2018-02-16] MEDS ORDERED: POTASSIUM CHLORIDE 10% 40 MEQ/30 ML UDC PO ONE (07:00)
[2018-02-16] MEDS: FUROSEMIDE 40 MG/4 ML IV SCH ×2 (08:42→16:13)
[2018-02-16] MEDS: PANTOPRAZOLE 40 MG IV IVPush SCH ×2 (09:16→20:54)
[2018-02-16] MEDS: SODIUM CHLORIDE FLUSH 10ML SYR IVF SCH ×2 (09:16→20:54)
[2018-02-16] MEDS: LACTULOSE 10 GM/15 ML UDC PO SCH ×2 (09:17→20:54)
[2018-02-16] MEDS: SENNA/DOCUSATE TABLET PO SCH (09:17)
[2018-02-16] MEDS: FOLIC ACID 1 MG TABLET PO SCH (09:17)
[2018-02-16] MEDS ORDERED: POTASSIUM CHLORIDE 10% 40 MEQ/30 ML UDC PO SCH (09:30)
[2018-02-16] MEDS: FENTANYL PF 100 MCG/2ML IVPush PRN ×2 (09:34→11:24)
[2018-02-16] MEDS: THIAMINE 200 MG in SODIUM CHLORIDE 0.9% 50 ML IV SCH (14:31)
[2018-02-16] MEDS: LABETALOL 200 MG TABLET PO SCH ×2 (16:13→20:54)
[2018-02-16] MEDS: AMIODARONE 200 MG TABLET PO SCH (18:45)
[2018-02-17 04:25] LABS: BASOPHILS # (AUTO) 0.02 x10^3/uL (0-0.1); BASOPHILS % (AUTO) 0 % (0-1); EOSINOPHILS # (AUTO) 0.05 x10^3/uL (0-0.4); EOSINOPHILS % (AUTO) 1 % (1-7); LYMPHOCYTES # (AUTO) 2.12 x10^3/uL (1-3.4); LYMPHOCYTES % (AUTO) 21 % (22-44); MD NO; MEAN CORPUSCULAR HEMOGLOBIN 28.4 pg (27.5-34.5); MEAN CORPUSCULAR VOLUME 88.8 fL (81-97); MEAN PLATELET VOLUME 8.1 fL (7.4-10.4); MONOCYTES # (AUTO) 0.46 x10^3/uL (0.2-0.8); MONOCYTES % (AUTO) 5 % (2-9); NEUTROPHILS # (AUTO) 7.48 x10^3/uL (1.8-6.8); NEUTROPHILS % (AUTO) 74 % (42-75); PLATELET COUNT 228 x10^3/uL (130-400); RED BLOOD COUNT 3.52 x10^6/uL (4.38-5.82); RED CELL DISTRIBUTION WIDTH 19.3 % (9.4-14.8)
[2018-02-17 04:36] LABS: ALBUMIN 1.9 g/dL (3.4-5.0); ANION GAP 6 mmol/L (5-15); CHLORIDE 110 mmol/L (98-107)
[2018-02-17 04:38] LABS: ALANINE AMINOTRANSFERASE 106 U/L (12-78); ALKALINE PHOSPHATASE 136 U/L (45-117); BILIRUBIN,TOTAL 1.7 mg/dL (0.2-1.0); CREATININE 1.66 mg/dL (0.7-1.3); TOTAL PROTEIN 6.3 g/dL (6.4-8.2); TRIGLYCERIDES 215 mg/dL (50-200)
[2018-02-17] MEDS: LABETALOL 200 MG TABLET PO SCH ×3 (06:37→23:01)
[2018-02-17] MEDS: AMIODARONE 200 MG TABLET PO SCH ×2 (06:37→18:25)
[2018-02-17] MEDS ORDERED: MAGNESIUM SULFATE PMX 4GM/100M 100 ML IV ONE (07:30)
[2018-02-17] MEDS ORDERED: POTASSIUM CHLORIDE 10% 40 MEQ/30 ML UDC PO ONE (07:30)
[2018-02-17] MEDS: FOLIC ACID 1 MG TABLET PO SCH (07:44)
[2018-02-17] MEDS: PANTOPRAZOLE 40 MG IV IVPush SCH ×2 (07:44→21:02)
[2018-02-17] MEDS: LACTULOSE 10 GM/15 ML UDC PO SCH ×2 (07:44→21:02)
[2018-02-17] MEDS: FUROSEMIDE 40 MG/4 ML IV SCH (07:44)
[2018-02-17] MEDS: SENNA/DOCUSATE TABLET PO SCH (07:45)
[2018-02-17] MEDS: SODIUM CHLORIDE FLUSH 10ML SYR IVF SCH ×2 (07:45→21:02)
[2018-02-17] MEDS: POTASSIUM CHLORIDE 20 MEQ PACKET PO SCH (07:45)
[2018-02-17] MEDS: ERGOCALCIFEROL 50,000 UNIT CAPSULE PO SCH (07:49)
[2018-02-17] MEDS: THIAMINE 200 MG in SODIUM CHLORIDE 0.9% 50 ML IV SCH (15:00)
[2018-02-17 18:15] VITALS: BP 127/78
[2018-02-17] MEDS ORDERED: LABETALOL 100 MG TABLET ONE (22:52)
[2018-02-18 02:35] VITALS: BP 125/76
[2018-02-18 04:35] LABS: MEAN CORPUSCULAR HEMOGLOBIN 28.5 pg (27.5-34.5); MEAN CORPUSCULAR HGB CONC 32.2 g/dL (33.2-36.2); MEAN CORPUSCULAR VOLUME 88.3 fL (81-97); RED BLOOD COUNT 3.42 x10^6/uL (4.38-5.82); RED CELL DISTRIBUTION WIDTH 19.6 % (9.4-14.8)
[2018-02-18 04:48] LABS: CALCIUM 7.8 mg/dL (8.5-10.1); CHLORIDE 109 mmol/L (98-107)
[2018-02-18 04:53] LABS: BASOPHILS # (AUTO) 0.03 x10^3/uL (0-0.1); BASOPHILS % (AUTO) 0 % (0-1); EOSINOPHILS # (AUTO) 0.09 x10^3/uL (0-0.4); EOSINOPHILS % (AUTO) 1 % (1-7); LYMPHOCYTES % (AUTO) 16 % (22-44); MD SCAN; MEAN PLATELET VOLUME 7.9 fL (7.4-10.4); MONOCYTES # (AUTO) 0.46 x10^3/uL (0.2-0.8); MONOCYTES % (AUTO) 4 % (2-9); NEUTROPHILS # (AUTO) 9.78 x10^3/uL (1.8-6.8); NEUTROPHILS % (AUTO) 79 % (42-75); PLATELET COUNT 225 x10^3/uL (130-400)
[2018-02-18 04:55] LABS: ALANINE AMINOTRANSFERASE 88 U/L (12-78); ALBUMIN 1.8 g/dL (3.4-5.0); ALKALINE PHOSPHATASE 125 U/L (45-117); ANION GAP 8 mmol/L (5-15); BILIRUBIN,TOTAL 1.7 mg/dL (0.2-1.0); CREATININE 1.61 mg/dL (0.7-1.3); TOTAL PROTEIN 5.9 g/dL (6.4-8.2)
[2018-02-18] MEDS ORDERED: LABETALOL 100 MG TABLET ONE (05:10)
[2018-02-18] MEDS: AMIODARONE 200 MG TABLET PO SCH ×2 (05:12→17:34)
[2018-02-18] MEDS: LABETALOL 200 MG TABLET PO SCH ×3 (05:12→21:33)
[2018-02-18 06:53] VITALS: BP 114/66
[2018-02-18] MEDS: SENNA/DOCUSATE TABLET PO SCH (07:34)
[2018-02-18] MEDS: LACTULOSE 10 GM/15 ML UDC PO SCH ×2 (08:30→21:31)
[2018-02-18] MEDS: PANTOPRAZOLE 40 MG IV IVPush SCH (08:30)
[2018-02-18] MEDS: POTASSIUM CHLORIDE 20 MEQ PACKET PO SCH ×3 (08:30→21:32)
[2018-02-18] MEDS: FUROSEMIDE 40 MG/4 ML IV SCH (08:31)
[2018-02-18] MEDS: SODIUM CHLORIDE FLUSH 10ML SYR IVF SCH ×2 (08:32→21:31)
[2018-02-18] MEDS: FOLIC ACID 1 MG TABLET PO SCH (11:05)
[2018-02-18 13:10] VITALS: BP 109/73
[2018-02-18] MEDS: THIAMINE 200 MG in SODIUM CHLORIDE 0.9% 50 ML IV SCH (13:52)
[2018-02-18 18:45] VITALS: BP 105/68
[2018-02-18] MEDS: PANTOPROZOLE 40MG TABLET PO SCH (21:32)
[2018-02-19 00:02] VITALS: BP 99/61
[2018-02-19 06:05] LABS: MEAN CORPUSCULAR HEMOGLOBIN 28.7 pg (27.5-34.5); MEAN CORPUSCULAR HGB CONC 32.4 g/dL (33.2-36.2); MEAN CORPUSCULAR VOLUME 88.7 fL (81-97); PLATELET COUNT 226 x10^3/uL (130-400); RED BLOOD COUNT 3.16 x10^6/uL (4.38-5.82); RED CELL DISTRIBUTION WIDTH 20.7 % (9.4-14.8)
[2018-02-19] MEDS: AMIODARONE 200 MG TABLET PO SCH ×4 (06:18→22:46)
[2018-02-19] MEDS: LABETALOL 200 MG TABLET PO SCH ×3 (06:18→22:46)
[2018-02-19 06:27] LABS: CHLORIDE 109 mmol/L (98-107)
[2018-02-19 06:40] LABS: BASOPHILS # (AUTO) 0.03 x10^3/uL (0-0.1); BASOPHILS % (AUTO) 0 % (0-1); EOSINOPHILS # (AUTO) 0.08 x10^3/uL (0-0.4); EOSINOPHILS % (AUTO) 1 % (1-7); LYMPHOCYTES # (AUTO) 2.41 x10^3/uL (1-3.4); LYMPHOCYTES % (AUTO) 30 % (22-44); MD SCAN; MONOCYTES # (AUTO) 0.52 x10^3/uL (0.2-0.8); MONOCYTES % (AUTO) 6 % (2-9); NEUTROPHILS # (AUTO) 5.09 x10^3/uL (1.8-6.8); NEUTROPHILS % (AUTO) 63 % (42-75)
[2018-02-19 06:41] LABS: ALANINE AMINOTRANSFERASE 72 U/L (12-78); ALBUMIN 1.8 g/dL (3.4-5.0); ALKALINE PHOSPHATASE 124 U/L (45-117); ANION GAP 8 mmol/L (5-15); BILIRUBIN,TOTAL 1.5 mg/dL (0.2-1.0); CALCIUM 7.7 mg/dL (8.5-10.1); CREATININE 1.47 mg/dL (0.7-1.3); TOTAL PROTEIN 5.8 g/dL (6.4-8.2)
[2018-02-19] MEDS: SENNA/DOCUSATE TABLET PO SCH (07:37)
[2018-02-19 08:20] VITALS: BP 112/78
[2018-02-19] MEDS: PANTOPROZOLE 40MG TABLET PO SCH ×2 (09:34→22:45)
[2018-02-19] MEDS: FUROSEMIDE 40 MG/4 ML IV SCH (09:34)
[2018-02-19] MEDS: FOLIC ACID 1 MG TABLET PO SCH (09:34)
[2018-02-19] MEDS: LACTULOSE 10 GM/15 ML UDC PO SCH ×2 (09:34→23:38)
[2018-02-19] MEDS: SODIUM CHLORIDE FLUSH 10ML SYR IVF SCH ×2 (09:35→21:00)
[2018-02-19] MEDS: POTASSIUM CHLORIDE 20 MEQ PACKET PO SCH ×2 (09:35→22:45)
[2018-02-19 13:10] VITALS: BP 110/68
[2018-02-19] MEDS: THIAMINE 200 MG in SODIUM CHLORIDE 0.9% 50 ML IV SCH (13:22)
[2018-02-19 18:38] VITALS: BP 111/62
[2018-02-19] MEDS ORDERED: MAGNESIUM SULFATE PMX 2GM/50ML 50 ML IV ONE (22:00)
[2018-02-20 02:41] VITALS: BP 103/61
[2018-02-20 05:43] LABS: BASOPHILS # (AUTO) 0.03 x10^3/uL (0-0.1); BASOPHILS % (AUTO) 0 % (0-1); EOSINOPHILS # (AUTO) 0.07 x10^3/uL (0-0.4); EOSINOPHILS % (AUTO) 1 % (1-7); LYMPHOCYTES # (AUTO) 2.36 x10^3/uL (1-3.4); LYMPHOCYTES % (AUTO) 25 % (22-44); MD NO; MEAN CORPUSCULAR HEMOGLOBIN 28.7 pg (27.5-34.5); MEAN CORPUSCULAR HGB CONC 32.3 g/dL (33.2-36.2); MEAN CORPUSCULAR VOLUME 89.1 fL (81-97); MEAN PLATELET VOLUME 7.9 fL (7.4-10.4); MONOCYTES # (AUTO) 0.63 x10^3/uL (0.2-0.8); MONOCYTES % (AUTO) 7 % (2-9); NEUTROPHILS # (AUTO) 6.19 x10^3/uL (1.8-6.8); NEUTROPHILS % (AUTO) 67 % (42-75); PLATELET COUNT 239 x10^3/uL (130-400); RED BLOOD COUNT 3.27 x10^6/uL (4.38-5.82); RED CELL DISTRIBUTION WIDTH 21.9 % (9.4-14.8)
[2018-02-20 05:52] LABS: ANION GAP 8 mmol/L (5-15); CALCIUM 7.9 mg/dL (8.5-10.1); CHLORIDE 107 mmol/L (98-107); CREATININE 1.49 mg/dL (0.7-1.3); TRIGLYCERIDES 113 mg/dL (50-200)
[2018-02-20 06:14] VITALS: BP 129/87
[2018-02-20] MEDS: LABETALOL 200 MG TABLET PO SCH ×3 (06:29→22:00)
[2018-02-20] MEDS: SENNA/DOCUSATE TABLET PO SCH (09:00)
[2018-02-20] MEDS: FUROSEMIDE 40 MG/4 ML IV SCH (09:29)
[2018-02-20] MEDS: THIAMINE 100MG TABLET PO SCH (09:30)
[2018-02-20] MEDS: POTASSIUM CHLORIDE 20 MEQ PACKET PO SCH ×2 (09:30→22:04)
[2018-02-20] MEDS: FOLIC ACID 1 MG TABLET PO SCH (09:30)
[2018-02-20] MEDS: PANTOPROZOLE 40MG TABLET PO SCH ×2 (09:30→22:05)
[2018-02-20] MEDS: SODIUM CHLORIDE FLUSH 10ML SYR IVF SCH ×2 (09:30→21:00)
[2018-02-20] MEDS: AMIODARONE 200 MG TABLET PO SCH ×2 (09:30→22:05)
[2018-02-20] MEDS: RIFAXIMIN 550 MG TABLET PO SCH ×2 (10:25→22:05)
[2018-02-20 14:05] VITALS: BP 105/62
[2018-02-20 20:09] VITALS: BP 95/60
[2018-02-20 22:12] VITALS: BP 111/67
[2018-02-21 02:07] VITALS: BP 118/77
[2018-02-21 05:41] VITALS: BP 108/73
[2018-02-21] MEDS: LABETALOL 200 MG TABLET PO SCH ×3 (05:45→21:31)
[2018-02-21 06:18] VITALS: BP 121/74
[2018-02-21] MEDS: POTASSIUM CHLORIDE 20 MEQ PACKET PO SCH ×2 (08:42→21:31)
[2018-02-21] MEDS: SODIUM CHLORIDE FLUSH 10ML SYR IVF SCH ×2 (08:42→21:00)
[2018-02-21] MEDS: FUROSEMIDE 40 MG/4 ML IV SCH (08:42)
[2018-02-21] MEDS: AMIODARONE 200 MG TABLET PO SCH ×2 (08:42→21:30)
[2018-02-21] MEDS: PANTOPROZOLE 40MG TABLET PO SCH ×2 (08:42→21:31)
[2018-02-21] MEDS: THIAMINE 100MG TABLET PO SCH (08:43)
[2018-02-21] MEDS: RIFAXIMIN 550 MG TABLET PO SCH ×2 (08:43→21:31)
[2018-02-21] MEDS: FOLIC ACID 1 MG TABLET PO SCH (08:43)
[2018-02-21] MEDS: ERGOCALCIFEROL 50,000 UNIT CAPSULE PO SCH (08:44)
[2018-02-21 15:22] VITALS: BP 115/76
[2018-02-21 18:26] VITALS: BP 123/82
[2018-02-22] VITALS (8 sets, daily range): BP systolic 95–138; BP diastolic 49–88
[2018-02-22] MEDS: LABETALOL 200 MG TABLET PO SCH ×3 (05:17→20:31)
[2018-02-22] MEDS: SODIUM CHLORIDE FLUSH 10ML SYR IVF SCH ×2 (09:00→20:30)
[2018-02-22] MEDS: FUROSEMIDE 40 MG/4 ML IV SCH (09:52)
[2018-02-22] MEDS: POTASSIUM CHLORIDE 20 MEQ PACKET PO SCH ×2 (09:53→20:30)
[2018-02-22] MEDS: FOLIC ACID 1 MG TABLET PO SCH (09:53)
[2018-02-22] MEDS: RIFAXIMIN 550 MG TABLET PO SCH ×2 (09:53→20:30)
[2018-02-22] MEDS: PANTOPROZOLE 40MG TABLET PO SCH ×2 (09:53→20:30)
[2018-02-22] MEDS: AMIODARONE 200 MG TABLET PO SCH ×2 (09:56→20:30)
[2018-02-22] MEDS: THIAMINE 100MG TABLET PO SCH (09:59)
[2018-02-22 10:11] LABS: ALBUMIN 1.9 g/dL (3.4-5.0); ANION GAP 7 mmol/L (5-15); CALCIUM 7.2 mg/dL (8.5-10.1); CHLORIDE 107 mmol/L (98-107); CREATININE 1.48 mg/dL (0.7-1.3)
[2018-02-23] VITALS (8 sets, daily range): BP systolic 100–143; BP diastolic 62–96
[2018-02-23] MEDS: LABETALOL 200 MG TABLET PO SCH ×3 (06:07→22:00)
[2018-02-23] MEDS: FUROSEMIDE 40 MG/4 ML IV SCH (08:29)
[2018-02-23] MEDS: AMIODARONE 200 MG TABLET PO SCH ×2 (08:30→20:26)
[2018-02-23] MEDS: THIAMINE 100MG TABLET PO SCH (08:30)
[2018-02-23] MEDS: RIFAXIMIN 550 MG TABLET PO SCH ×2 (08:30→20:26)
[2018-02-23] MEDS: PANTOPROZOLE 40MG TABLET PO SCH ×2 (08:30→20:26)
[2018-02-23] MEDS: SODIUM CHLORIDE FLUSH 10ML SYR IVF SCH ×2 (09:00→20:26)
[2018-02-23] MEDS: POTASSIUM CHLORIDE 20 MEQ PACKET PO SCH ×2 (09:00→20:26)
[2018-02-23] MEDS: FOLIC ACID 1 MG TABLET PO SCH (11:59)
[2018-02-24 01:09] VITALS: BP 112/74
[2018-02-24 06:10] VITALS: BP 161/109
[2018-02-24] MEDS: LABETALOL 200 MG TABLET PO SCH (06:12)
[2018-02-24 07:39] LABS: ALBUMIN 1.9 g/dL (3.4-5.0); ANION GAP 10 mmol/L (5-15); CALCIUM 7.3 mg/dL (8.5-10.1); CHLORIDE 104 mmol/L (98-107); CREATININE 1.56 mg/dL (0.7-1.3)
[2018-02-24 08:02] VITALS: BP 123/70
[2018-02-24] MEDS ORDERED: FUROSEMIDE 40 MG TABLET PO SCH (09:00)
[2018-02-24] MEDS: ERGOCALCIFEROL 50,000 UNIT CAPSULE PO SCH (09:16)
[2018-02-24] MEDS: FOLIC ACID 1 MG TABLET PO SCH (09:16)
[2018-02-24] MEDS: RIFAXIMIN 550 MG TABLET PO SCH (09:16)
[2018-02-24] MEDS: THIAMINE 100MG TABLET PO SCH (09:16)
[2018-02-24] MEDS: AMIODARONE 200 MG TABLET PO SCH (09:19)
[2018-02-24] MEDS: SODIUM CHLORIDE FLUSH 10ML SYR IVF SCH (09:20)
[2018-02-24] MEDS: POTASSIUM CHLORIDE 20 MEQ PACKET PO SCH (09:21)
[2018-02-24] MEDS: PANTOPROZOLE 40MG TABLET PO SCH (09:23)
[2018-02-24] MEDS ORDERED: MAGNESIUM SULFATE PMX 2GM/50ML 50 ML IV ONE ×2 (11:00→12:30)
[2018-02-24] MEDS ORDERED: AMIO200T42 PO (12:31)
[2018-02-24] MEDS ORDERED: LABE200T3 PO (12:31)
[2018-02-24] MEDS ORDERED: PANT40TA5 PO (12:31)
[2018-02-24] MEDS ORDERED: RIFA550T4 PO (12:31)
[2018-02-24] MEDS ORDERED: FOLI-17 PO (12:31)
[2018-02-24] MEDS ORDERED: ONDA4TAB13 PO (12:31)
[2018-02-24] MEDS ORDERED: THIA100T6 PO (12:31)
[2018-02-24] MEDS ORDERED: ERGO500017 PO (12:31)
[2018-02-24] MEDS ORDERED: FURO-92 PO (12:31)
[2018-02-24] MEDS ORDERED: POTA20TA89 PO (12:31)
== END 2018-02-24 16:25 | DRG 870 ==
LOC: ED 06:23 → EDIP 06:29 → CCU 12:38 → 5SO 02-17 18:05 → 4EST 02-22 06:56
PROVIDERS: ADMIT Internal Medicine Pulmonary Disease; ATTEND Hospitalist
PROC: 0T9B70Z Drainage of Bladder with Drainage Device, Via Natural or Artificial Opening (ICD-10-PCS; principal; 2018-02-05)
PROC: 5A1955Z Respiratory Ventilation, Greater than 96 Consecutive Hours (ICD-10-PCS; 2018-02-05)
PROC: 0BH17EZ Insertion of Endotracheal Airway into Trachea, Via Natural or Artificial Opening (ICD-10-PCS; 2018-02-05)
PROC: 0DJ08ZZ Inspection of Upper Intestinal Tract, Via Natural or Artificial Opening Endoscopic (ICD-10-PCS; 2018-02-11)
DX: A41.9 Sepsis, unspecified organism (principal); I63.432 Cerebral infarction due to embolism of left posterior cerebral artery; J96.01 Acute respiratory failure with hypoxia; K72.00 Acute and subacute hepatic failure without coma; N17.0 Acute kidney failure with tubular necrosis; E43 Unspecified severe protein-calorie malnutrition; J18.9 Pneumonia, unspecified organism; G92 Toxic encephalopathy; I47.2 Ventricular tachycardia; R65.21 Severe sepsis with septic shock; N18.3 Chronic kidney disease, stage 3 (moderate); I50.43 Acute on chronic combined systolic (congestive) and diastolic (congestive) heart failure; K26.4 Chronic or unspecified duodenal ulcer with hemorrhage; D68.69 Other thrombophilia; E87.0 Hyperosmolality and hypernatremia; I13.0 Hypertensive heart and chronic kidney disease with heart failure and stage 1 through stage 4 chronic kidney disease, or unspecified chronic kidney disease; I48.1 Persistent atrial fibrillation; I48.92 Unspecified atrial flutter; J98.11 Atelectasis; K56.7 Ileus, unspecified; Z99.11 Dependence on respirator [ventilator] status; E11.22 Type 2 diabetes mellitus with diabetic chronic kidney disease; E66.01 Morbid (severe) obesity due to excess calories; E83.51 Hypocalcemia; D64.9 Anemia, unspecified; B95.61 Methicillin susceptible Staphylococcus aureus infection as the cause of diseases classified elsewhere; Z68.34 Body mass index [BMI] 34.0-34.9, adult; F10.21 Alcohol dependence, in remission; F14.90 Cocaine use, unspecified, uncomplicated; F15.10 Other stimulant abuse, uncomplicated; E87.6 Hypokalemia; I27.20 Pulmonary hypertension, unspecified; I87.8 Other specified disorders of veins; J40 Bronchitis, not specified as acute or chronic; K75.89 Other specified inflammatory liver diseases; Z66 Do not resuscitate; Z83.3 Family history of diabetes mellitus; Z79.01 Long term (current) use of anticoagulants; Z87.891 Personal history of nicotine dependence; Z88.8 Allergy status to other drugs, medicaments and biological substances
CPT/HCPCS: 36415; 36600; 70450; 70551; 71045; 74018; 74176; 76700; 80048; 80053; 80061; 80069; 80162; 80307; 81001; 82040; 82043; 82140; 82272; 82306; 82436; 82570; 82728; 82803; 82962; 83036; 83540; 83550; 83690; 83735; 83880; 83883; 83970; 84100; 84132; 84133; 84155; 84156; 84165; 84166; 84300; 84443; 84478; 84484; 85014; 85018; 85025; 85520; 85610; 85730; 86677; 87040; 87070; 87077; 87081; 87086; 87186; 87205; 93005; 93970; 94002; 94003; 94640; C8929; J0295; J0610; J1644; J1940; J2020; J2250; J2354; J2543; J2704; J3010; J3370; J3411; J3480; J7060; J7070; J7620; P9047; Q9967; 92523-GN; C9113; J0282; J0330; J1160; J2060; J2270; J2765; J3475; J7030; J7040; J7050; S0028

== ENCOUNTER 2018-04-13 03:30 | Inpatient (IN) | payer MEDICAID ==
[~2018-04-13] VITALS: Ht 167.6 cm; Wt 109.5 kg
[~2018-04-13 03:30] MED LIST changes: +AMIO200T42 PO; +ERGO500017 PO; +FOLI-17 PO; +LABE200T3 PO; +ONDA4TAB13 PO; +PANT40TA5 PO; +POTA20TA89 PO; +RIFA550T4 PO; +THIA100T6 PO
[2018-04-13] MEDS ORDERED: FUROSEMIDE 40 MG/4 ML IV ONE (04:00)
[2018-04-13] MEDS ORDERED: SODIUM CHLORIDE FLUSH 10ML SYR IVF ONE (04:00)
[2018-04-13 04:02] LABS: INTERNATIONAL NORMALIZED RATIO 1.35 (0.93-1.1)
[2018-04-13 04:05] LABS: ALANINE AMINOTRANSFERASE 21 U/L (12-78); ALBUMIN 2.9 g/dL (3.4-5.0); ANION GAP 11 mmol/L (5-15); CALCIUM 8.3 mg/dL (8.5-10.1); CHLORIDE 110 mmol/L (98-107); CREATININE 1.95 mg/dL (0.7-1.3)
[2018-04-13 04:07] LABS: BASOPHILS # (AUTO) 0.09 x10^3/uL (0-0.1); BASOPHILS % (AUTO) 1 % (0-1); EOSINOPHILS # (AUTO) 0.09 x10^3/uL (0-0.4); EOSINOPHILS % (AUTO) 1 % (1-7); LYMPHOCYTES # (AUTO) 1.46 x10^3/uL (1-3.4); LYMPHOCYTES % (AUTO) 19 % (22-44); MD NO; MEAN CORPUSCULAR HEMOGLOBIN 28.2 pg (27.5-34.5); MEAN CORPUSCULAR HGB CONC 32.5 g/dL (33.2-36.2); MEAN CORPUSCULAR VOLUME 86.8 fL (81-97); MEAN PLATELET VOLUME 6.9 fL (7.4-10.4); MONOCYTES # (AUTO) 0.78 x10^3/uL (0.2-0.8); MONOCYTES % (AUTO) 10 % (2-9); NEUTROPHILS # (AUTO) 5.18 x10^3/uL (1.8-6.8); NEUTROPHILS % (AUTO) 68 % (42-75); PLATELET COUNT 355 x10^3/uL (130-400); RED BLOOD COUNT 3.28 x10^6/uL (4.38-5.82); RED CELL DISTRIBUTION WIDTH 20.5 % (9.4-14.8)
[2018-04-13 04:09] LABS: ALKALINE PHOSPHATASE 130 U/L (45-117); BILIRUBIN,TOTAL 1.3 mg/dL (0.2-1.0); TOTAL PROTEIN 7.4 g/dL (6.4-8.2); TROPONIN I < 0.015 ng/mL (0.000-0.045)
[2018-04-13] MEDS ORDERED: FUROSEMIDE 40 MG/4 ML ONE (04:41)
[2018-04-13 05:19] VITALS: BP 144/96
[2018-04-13] MEDS ORDERED: ONDANSETRON ODT 4 MG PO PRN (05:30)
[2018-04-13] MEDS ORDERED: TEMAZEPAM 15 MG CAPSULE PO PRN (05:30)
[2018-04-13] MEDS ORDERED: TRAZODONE 50MG TABLET PO PRN (05:30)
[2018-04-13] MEDS ORDERED: DOCUSATE 100 MG CAPSULE PO PRN (05:30)
[2018-04-13] MEDS ORDERED: LABETALOL 5MG/ML, 20ML IVPush PRN (05:30)
[2018-04-13] MEDS ORDERED: NITROGLYCERIN 0.4 MG BOTTLE (25 TABS) SL PRN (05:30)
[2018-04-13] MEDS ORDERED: ACETAMINOPHEN 325 MG TABLET PO PRN (05:30)
[2018-04-13] MEDS ORDERED: ONDANSETRON 2MG/ML, 2ML IVPush PRN (05:30)
[2018-04-13] MEDS: FOLIC ACID 1 MG TABLET PO SCH (06:11)
[2018-04-13] MEDS: AMIODARONE 200 MG TABLET PO SCH ×2 (06:11→17:40)
[2018-04-13] MEDS: LABETALOL 200 MG TABLET PO SCH ×3 (06:12→21:00)
[2018-04-13] MEDS: NICOTINE 21 MG/24 HR PATCH.TD24 TD SCH (06:12)
[2018-04-13] MEDS: PANTOPROZOLE 40MG TABLET PO SCH (08:11)
[2018-04-13] MEDS: POTASSIUM CHLORIDE 20 MEQ TAB.ER.PRT PO SCH (08:12)
[2018-04-13] MEDS: RIFAXIMIN 550 MG TABLET PO SCH ×2 (08:12→20:59)
[2018-04-13] MEDS: FUROSEMIDE 20 MG/2 ML IV SCH ×2 (08:13→17:40)
[2018-04-13 08:15] VITALS: BP 116/75
[2018-04-13 09:25] LABS: TROPONIN I < 0.015 ng/mL (0.000-0.045)
[2018-04-13] MEDS ORDERED: ALBUTEROL/IPRATROPIUM 2.5MG/0.5MG, 3 ML NPPB SCH (10:00)
[2018-04-13] MEDS ORDERED: ALBUTEROL/IPRATROPIUM 2.5MG/0.5MG, 3 ML NPPB PRN (10:00)
[2018-04-13] MEDS: NYSTATIN TOPICAL POWDER 15GM TP SCH ×2 (11:17→21:00)
[2018-04-13 13:50] VITALS: BP 116/76
[2018-04-13 19:12] VITALS: BP 119/69
[2018-04-14 01:05] VITALS: BP 100/63
[2018-04-14 05:04] LABS: ALBUMIN 2.5 g/dL (3.4-5.0); ANION GAP 10 mmol/L (5-15); CALCIUM 7.9 mg/dL (8.5-10.1); CHLORIDE 108 mmol/L (98-107)
[2018-04-14 05:09] LABS: BASOPHILS # (AUTO) 0.01 x10^3/uL (0-0.1); BASOPHILS % (AUTO) 0 % (0-1); EOSINOPHILS # (AUTO) 0.17 x10^3/uL (0-0.4); EOSINOPHILS % (AUTO) 3 % (1-7); LYMPHOCYTES # (AUTO) 1.07 x10^3/uL (1-3.4); LYMPHOCYTES % (AUTO) 19 % (22-44); MD NO; MEAN CORPUSCULAR HEMOGLOBIN 27.8 pg (27.5-34.5); MEAN CORPUSCULAR HGB CONC 31.8 g/dL (33.2-36.2); MEAN CORPUSCULAR VOLUME 87.5 fL (81-97); MEAN PLATELET VOLUME 7.1 fL (7.4-10.4); MONOCYTES # (AUTO) 0.63 x10^3/uL (0.2-0.8); MONOCYTES % (AUTO) 11 % (2-9); NEUTROPHILS # (AUTO) 3.88 x10^3/uL (1.8-6.8); NEUTROPHILS % (AUTO) 67 % (42-75); PLATELET COUNT 335 x10^3/uL (130-400); RED BLOOD COUNT 3.19 x10^6/uL (4.38-5.82); RED CELL DISTRIBUTION WIDTH 21.4 % (9.4-14.8)
[2018-04-14 05:17] LABS: ALANINE AMINOTRANSFERASE 20 U/L (12-78); ALKALINE PHOSPHATASE 112 U/L (45-117); BILIRUBIN,TOTAL 0.7 mg/dL (0.2-1.0); CREATININE 2.11 mg/dL (0.7-1.3)
[2018-04-14] MEDS: LABETALOL 200 MG TABLET PO SCH ×3 (05:30→22:28)
[2018-04-14] MEDS: NICOTINE 21 MG/24 HR PATCH.TD24 TD SCH (05:31)
[2018-04-14] MEDS: AMIODARONE 200 MG TABLET PO SCH ×2 (05:31→17:48)
[2018-04-14] MEDS: FOLIC ACID 1 MG TABLET PO SCH (05:31)
[2018-04-14 06:59] VITALS: BP 109/73
[2018-04-14] MEDS: POTASSIUM CHLORIDE 20 MEQ TAB.ER.PRT PO SCH (07:46)
[2018-04-14] MEDS: RIFAXIMIN 550 MG TABLET PO SCH ×2 (07:46→20:24)
[2018-04-14] MEDS: PANTOPROZOLE 40MG TABLET PO SCH (07:46)
[2018-04-14] MEDS: NYSTATIN TOPICAL POWDER 15GM TP SCH ×2 (07:47→20:24)
[2018-04-14] MEDS: FUROSEMIDE 20 MG/2 ML IV SCH ×2 (07:47→17:48)
[2018-04-14] MEDS ORDERED: MAGNESIUM SULFATE PMX 1GM/100ML IV SCH (08:00)
[2018-04-14] MEDS ORDERED: MAGNESIUM SULFATE 1 GM in SODIUM CHLORIDE 0.9% 25 ML IV ONE (08:30)
[2018-04-14] MEDS ORDERED: MAGNESIUM SULFATE/D5W 100 ML IVPB ONE (09:00)
[2018-04-14 14:01] VITALS: BP 121/81
[2018-04-14 19:13] VITALS: BP 110/71
[2018-04-15 00:55] VITALS: BP 132/84
[2018-04-15] MEDS: AMIODARONE 200 MG TABLET PO SCH ×2 (05:23→17:37)
[2018-04-15] MEDS: FOLIC ACID 1 MG TABLET PO SCH (05:23)
[2018-04-15] MEDS: NICOTINE 21 MG/24 HR PATCH.TD24 TD SCH (05:23)
[2018-04-15 05:45] LABS: CHLORIDE 109 mmol/L (98-107)
[2018-04-15 05:46] LABS: ALBUMIN 2.6 g/dL (3.4-5.0); ANION GAP 9 mmol/L (5-15); BASOPHILS # (AUTO) 0.03 x10^3/uL (0-0.1); BASOPHILS % (AUTO) 1 % (0-1); CALCIUM 8.4 mg/dL (8.5-10.1); EOSINOPHILS # (AUTO) 0.19 x10^3/uL (0-0.4); EOSINOPHILS % (AUTO) 3 % (1-7); LYMPHOCYTES # (AUTO) 1.31 x10^3/uL (1-3.4); LYMPHOCYTES % (AUTO) 20 % (22-44); MD NO; MEAN CORPUSCULAR HGB CONC 31.6 g/dL (33.2-36.2); MEAN CORPUSCULAR VOLUME 88.7 fL (81-97); MEAN PLATELET VOLUME 6.9 fL (7.4-10.4); MONOCYTES # (AUTO) 0.77 x10^3/uL (0.2-0.8); MONOCYTES % (AUTO) 12 % (2-9); NEUTROPHILS # (AUTO) 4.14 x10^3/uL (1.8-6.8); NEUTROPHILS % (AUTO) 64 % (42-75); PLATELET COUNT 355 x10^3/uL (130-400); RED BLOOD COUNT 3.29 x10^6/uL (4.38-5.82); RED CELL DISTRIBUTION WIDTH 21.7 % (9.4-14.8)
[2018-04-15 05:47] LABS: CREATININE 2.08 mg/dL (0.7-1.3)
[2018-04-15] MEDS: LABETALOL 200 MG TABLET PO SCH ×3 (06:20→21:44)
[2018-04-15 07:04] VITALS: BP 127/85
[2018-04-15] MEDS: POTASSIUM CHLORIDE 20 MEQ TAB.ER.PRT PO SCH (07:52)
[2018-04-15] MEDS: FUROSEMIDE 20 MG/2 ML IV SCH (07:52)
[2018-04-15] MEDS: NYSTATIN TOPICAL POWDER 15GM TP SCH ×2 (07:52→19:45)
[2018-04-15] MEDS: PANTOPROZOLE 40MG TABLET PO SCH (07:52)
[2018-04-15] MEDS: RIFAXIMIN 550 MG TABLET PO SCH ×2 (07:52→19:45)
[2018-04-15 09:53] LABS: ABSOLUTE RETICS # 0.08 x10^6/uL (0.5-1.5); RED BLOOD COUNT 3.33 x10^6/uL (4.38-5.82); RETICULOCYTE COUNT % 2.42 % (0.5-1.5)
[2018-04-15 10:28] LABS: CALCIUM 8.4 mg/dL (8.5-10.1)
[2018-04-15 12:54] LABS: CREATININE,URINE RANDOM 44.4 mg/dL
[2018-04-15 12:58] LABS: CULTURE INDICATED? YES; MICROSCOPIC INDICATED
[2018-04-15 13:16] VITALS: BP 121/77
[2018-04-15] MEDS ORDERED: ACETYLCYSTEINE 10%, 4ML NEB PRN (17:00)
[2018-04-15] MEDS: FUROSEMIDE 40 MG/4 ML IV SCH (17:37)
[2018-04-15 19:12] VITALS: BP 138/83
[2018-04-15 21:43] VITALS: BP 132/83
[2018-04-16 01:29] VITALS: BP 123/85
[2018-04-16 05:19] VITALS: BP 123/82
[2018-04-16] MEDS: LABETALOL 200 MG TABLET PO SCH ×3 (05:21→21:48)
[2018-04-16] MEDS: AMIODARONE 200 MG TABLET PO SCH ×2 (05:21→16:31)
[2018-04-16] MEDS: FOLIC ACID 1 MG TABLET PO SCH (05:21)
[2018-04-16] MEDS: NICOTINE 21 MG/24 HR PATCH.TD24 TD SCH (05:23)
[2018-04-16 05:27] LABS: ALBUMIN 2.7 g/dL (3.4-5.0); ANION GAP 9 mmol/L (5-15); CALCIUM 8.3 mg/dL (8.5-10.1); CHLORIDE 107 mmol/L (98-107)
[2018-04-16 05:28] LABS: BASOPHILS # (AUTO) 0.02 x10^3/uL (0-0.1); BASOPHILS % (AUTO) 0 % (0-1); EOSINOPHILS # (AUTO) 0.19 x10^3/uL (0-0.4); EOSINOPHILS % (AUTO) 3 % (1-7); LYMPHOCYTES # (AUTO) 1.31 x10^3/uL (1-3.4); LYMPHOCYTES % (AUTO) 19 % (22-44); MD NO; MEAN CORPUSCULAR HEMOGLOBIN 28.2 pg (27.5-34.5); MEAN CORPUSCULAR HGB CONC 32.1 g/dL (33.2-36.2); MEAN CORPUSCULAR VOLUME 87.9 fL (81-97); MEAN PLATELET VOLUME 7.1 fL (7.4-10.4); MONOCYTES # (AUTO) 0.66 x10^3/uL (0.2-0.8); MONOCYTES % (AUTO) 9 % (2-9); NEUTROPHILS # (AUTO) 4.81 x10^3/uL (1.8-6.8); NEUTROPHILS % (AUTO) 69 % (42-75); PLATELET COUNT 346 x10^3/uL (130-400); RED BLOOD COUNT 3.44 x10^6/uL (4.38-5.82); RED CELL DISTRIBUTION WIDTH 21.6 % (9.4-14.8)
[2018-04-16 05:31] LABS: ALANINE AMINOTRANSFERASE 18 U/L (12-78); ALKALINE PHOSPHATASE 116 U/L (45-117); BILIRUBIN,TOTAL 0.6 mg/dL (0.2-1.0); CREATININE 1.75 mg/dL (0.7-1.3); TOTAL PROTEIN 7.4 g/dL (6.4-8.2)
[2018-04-16 07:08] VITALS: BP 124/79
[2018-04-16] MEDS: FUROSEMIDE 40 MG/4 ML IV SCH ×4 (07:30→21:47)
[2018-04-16] MEDS: POTASSIUM CHLORIDE 20 MEQ TAB.ER.PRT PO SCH (08:41)
[2018-04-16] MEDS: RIFAXIMIN 550 MG TABLET PO SCH ×2 (08:41→21:48)
[2018-04-16] MEDS: PANTOPROZOLE 40MG TABLET PO SCH (08:42)
[2018-04-16] MEDS ORDERED: IRON SUCROSE COMPLEX 100MG/5ML ONE (08:44)
[2018-04-16] MEDS: IRON SUCROSE COMPLEX 100MG/5ML IV SCH (08:48)
[2018-04-16] MEDS: NYSTATIN TOPICAL POWDER 15GM TP SCH ×2 (09:00→21:49)
[2018-04-16 18:45] VITALS: BP 135/85
[2018-04-16] MEDS: GUAIFENESIN 200 MG TABLET PO SCH (21:48)
[2018-04-17 01:24] VITALS: BP 109/69
[2018-04-17] MEDS: AMIODARONE 200 MG TABLET PO SCH ×2 (05:06→15:11)
[2018-04-17] MEDS: FOLIC ACID 1 MG TABLET PO SCH (05:06)
[2018-04-17] MEDS: NICOTINE 21 MG/24 HR PATCH.TD24 TD SCH (05:07)
[2018-04-17 05:26] LABS: BASOPHILS # (AUTO) 0.03 x10^3/uL (0-0.1); BASOPHILS % (AUTO) 1 % (0-1); EOSINOPHILS % (AUTO) 3 % (1-7); LYMPHOCYTES # (AUTO) 1.27 x10^3/uL (1-3.4); LYMPHOCYTES % (AUTO) 21 % (22-44); MD NO; MEAN CORPUSCULAR HEMOGLOBIN 27.8 pg (27.5-34.5); MEAN PLATELET VOLUME 6.9 fL (7.4-10.4); MONOCYTES # (AUTO) 0.64 x10^3/uL (0.2-0.8); MONOCYTES % (AUTO) 10 % (2-9); NEUTROPHILS # (AUTO) 4.03 x10^3/uL (1.8-6.8); NEUTROPHILS % (AUTO) 65 % (42-75); PLATELET COUNT 335 x10^3/uL (130-400); RED BLOOD COUNT 3.57 x10^6/uL (4.38-5.82); RED CELL DISTRIBUTION WIDTH 21.4 % (9.4-14.8)
[2018-04-17 05:27] LABS: CHLORIDE 108 mmol/L (98-107)
[2018-04-17 05:32] LABS: ALBUMIN 2.7 g/dL (3.4-5.0); ANION GAP 8 mmol/L (5-15); CALCIUM 8.5 mg/dL (8.5-10.1); CREATININE 1.62 mg/dL (0.7-1.3)
[2018-04-17] MEDS: PANTOPROZOLE 40MG TABLET PO SCH (06:31)
[2018-04-17] MEDS: LABETALOL 200 MG TABLET PO SCH ×3 (06:31→21:35)
[2018-04-17 07:21] VITALS: BP 120/73
[2018-04-17] MEDS: POTASSIUM CHLORIDE 20 MEQ TAB.ER.PRT PO SCH (08:05)
[2018-04-17] MEDS: GUAIFENESIN 200 MG TABLET PO SCH ×3 (08:05→21:34)
[2018-04-17] MEDS: IRON SUCROSE COMPLEX 100MG/5ML IV SCH (08:06)
[2018-04-17] MEDS: FUROSEMIDE 40 MG/4 ML IV SCH ×3 (08:06→21:35)
[2018-04-17] MEDS: RIFAXIMIN 550 MG TABLET PO SCH ×2 (08:07→21:35)
[2018-04-17] MEDS: NYSTATIN TOPICAL POWDER 15GM TP SCH ×2 (08:08→21:35)
[2018-04-17] MEDS ORDERED: MAGNESIUM SULFATE PMX 2GM/50ML 50 ML IV ONE (09:00)
[2018-04-17 14:05] VITALS: BP 128/73
[2018-04-17 20:00] VITALS: BP 135/77
[2018-04-17 21:37] VITALS: BP 138/92
[2018-04-18 01:53] VITALS: BP 114/76
[2018-04-18 05:24] LABS: BASOPHILS # (AUTO) 0.02 x10^3/uL (0-0.1); BASOPHILS % (AUTO) 0 % (0-1); EOSINOPHILS # (AUTO) 0.25 x10^3/uL (0-0.4); EOSINOPHILS % (AUTO) 4 % (1-7); LYMPHOCYTES # (AUTO) 1.44 x10^3/uL (1-3.4); LYMPHOCYTES % (AUTO) 23 % (22-44); MD NO; MEAN CORPUSCULAR HGB CONC 31.6 g/dL (33.2-36.2); MEAN CORPUSCULAR VOLUME 85.5 fL (81-97); MEAN PLATELET VOLUME 6.9 fL (7.4-10.4); MONOCYTES # (AUTO) 0.79 x10^3/uL (0.2-0.8); MONOCYTES % (AUTO) 13 % (2-9); NEUTROPHILS # (AUTO) 3.67 x10^3/uL (1.8-6.8); NEUTROPHILS % (AUTO) 60 % (42-75); PLATELET COUNT 328 x10^3/uL (130-400); RED BLOOD COUNT 3.58 x10^6/uL (4.38-5.82); RED CELL DISTRIBUTION WIDTH 21.7 % (9.4-14.8)
[2018-04-18 05:27] LABS: ALBUMIN 2.6 g/dL (3.4-5.0); ANION GAP 8 mmol/L (5-15); CALCIUM 8.8 mg/dL (8.5-10.1); CHLORIDE 106 mmol/L (98-107)
[2018-04-18 05:28] LABS: CREATININE 1.58 mg/dL (0.7-1.3)
[2018-04-18] MEDS: AMIODARONE 200 MG TABLET PO SCH ×2 (05:49→17:07)
[2018-04-18] MEDS: FOLIC ACID 1 MG TABLET PO SCH (05:49)
[2018-04-18] MEDS: NICOTINE 21 MG/24 HR PATCH.TD24 TD SCH (05:49)
[2018-04-18] MEDS: LABETALOL 200 MG TABLET PO SCH ×3 (05:50→21:17)
[2018-04-18] MEDS: PANTOPROZOLE 40MG TABLET PO SCH (06:44)
[2018-04-18 07:03] VITALS: BP 153/92
[2018-04-18] MEDS ORDERED: MAGNESIUM OXIDE 400 MG TABLET PO SCH (09:00)
[2018-04-18] MEDS ORDERED: FUROSEMIDE 40 MG TABLET ONE ×2 (09:39→14:00)
[2018-04-18] MEDS: IRON SUCROSE COMPLEX 100MG/5ML IV SCH (09:41)
[2018-04-18] MEDS: GUAIFENESIN 200 MG TABLET PO SCH ×3 (09:44→21:17)
[2018-04-18] MEDS: POTASSIUM CHLORIDE 20 MEQ TAB.ER.PRT PO SCH (09:44)
[2018-04-18] MEDS: NYSTATIN TOPICAL POWDER 15GM TP SCH ×2 (09:45→21:18)
[2018-04-18] MEDS: FUROSEMIDE 40 MG TABLET PO SCH ×2 (09:45→17:00)
[2018-04-18] MEDS: RIFAXIMIN 550 MG TABLET PO SCH ×2 (09:49→21:18)
[2018-04-18 13:27] VITALS: BP 120/74
[2018-04-18 17:05] VITALS: BP 126/79
[2018-04-18 19:23] VITALS: BP 123/74
[2018-04-18 21:18] VITALS: BP 141/89
[2018-04-19 00:57] VITALS: BP 148/57
[2018-04-19 05:35] LABS: BASOPHILS # (AUTO) 0.04 x10^3/uL (0-0.1); BASOPHILS % (AUTO) 1 % (0-1); EOSINOPHILS # (AUTO) 0.19 x10^3/uL (0-0.4); EOSINOPHILS % (AUTO) 3 % (1-7); LYMPHOCYTES # (AUTO) 1.61 x10^3/uL (1-3.4); LYMPHOCYTES % (AUTO) 27 % (22-44); MD NO; MEAN CORPUSCULAR HEMOGLOBIN 27.3 pg (27.5-34.5); MEAN CORPUSCULAR HGB CONC 31.7 g/dL (33.2-36.2); MEAN PLATELET VOLUME 7.1 fL (7.4-10.4); MONOCYTES # (AUTO) 0.76 x10^3/uL (0.2-0.8); MONOCYTES % (AUTO) 13 % (2-9); NEUTROPHILS # (AUTO) 3.37 x10^3/uL (1.8-6.8); NEUTROPHILS % (AUTO) 57 % (42-75); PLATELET COUNT 352 x10^3/uL (130-400); RED BLOOD COUNT 3.56 x10^6/uL (4.38-5.82); RED CELL DISTRIBUTION WIDTH 21.9 % (9.4-14.8)
[2018-04-19 05:46] LABS: ALBUMIN 2.7 g/dL (3.4-5.0); ANION GAP 9 mmol/L (5-15); CALCIUM 8.6 mg/dL (8.5-10.1); CHLORIDE 105 mmol/L (98-107)
[2018-04-19 05:47] LABS: CREATININE 1.49 mg/dL (0.7-1.3)
[2018-04-19] MEDS: NICOTINE 21 MG/24 HR PATCH.TD24 TD SCH (05:56)
[2018-04-19] MEDS: FOLIC ACID 1 MG TABLET PO SCH (05:56)
[2018-04-19] MEDS: LABETALOL 200 MG TABLET PO SCH ×3 (05:56→21:56)
[2018-04-19] MEDS: AMIODARONE 200 MG TABLET PO SCH ×2 (05:57→17:28)
[2018-04-19] MEDS: PANTOPROZOLE 40MG TABLET PO SCH (06:40)
[2018-04-19 07:12] VITALS: BP 128/75
[2018-04-19] MEDS: FUROSEMIDE 40 MG TABLET PO SCH ×2 (08:00→17:28)
[2018-04-19] MEDS: POTASSIUM CHLORIDE 20 MEQ TAB.ER.PRT PO SCH (09:00)
[2018-04-19] MEDS: IRON SUCROSE COMPLEX 100MG/5ML IV SCH (09:14)
[2018-04-19] MEDS: GUAIFENESIN 200 MG TABLET PO SCH ×2 (09:18→14:54)
[2018-04-19] MEDS: RIFAXIMIN 550 MG TABLET PO SCH ×2 (09:18→21:56)
[2018-04-19] MEDS: NYSTATIN TOPICAL POWDER 15GM TP SCH ×2 (09:19→21:56)
[2018-04-19 14:42] VITALS: BP 153/82
[2018-04-19 17:24] VITALS: BP 132/84
[2018-04-19 19:57] VITALS: BP 159/95
[2018-04-19] MEDS: TAMSULOSIN 0.4 MG CAP.ER.24H PO SCH (21:56)
[2018-04-20 01:32] VITALS: BP 143/96
[2018-04-20 05:21] VITALS: BP 150/96
[2018-04-20] MEDS: FOLIC ACID 1 MG TABLET PO SCH (05:21)
[2018-04-20] MEDS: NICOTINE 21 MG/24 HR PATCH.TD24 TD SCH (05:22)
[2018-04-20] MEDS: LABETALOL 200 MG TABLET PO SCH ×3 (05:22→21:13)
[2018-04-20] MEDS: AMIODARONE 200 MG TABLET PO SCH ×2 (05:22→17:29)
[2018-04-20 05:52] LABS: ANION GAP 9 mmol/L (5-15); CALCIUM 9.2 mg/dL (8.5-10.1); CHLORIDE 105 mmol/L (98-107); CREATININE 1.52 mg/dL (0.7-1.3)
[2018-04-20] MEDS: FUROSEMIDE 40 MG TABLET PO SCH ×2 (08:00→17:29)
[2018-04-20] MEDS: POTASSIUM CHLORIDE 20 MEQ TAB.ER.PRT PO SCH (08:02)
[2018-04-20] MEDS: PANTOPROZOLE 40MG TABLET PO SCH (08:02)
[2018-04-20] MEDS: TAMSULOSIN 0.4 MG CAP.ER.24H PO SCH (08:02)
[2018-04-20] MEDS: IRON SUCROSE COMPLEX 100MG/5ML IV SCH (08:03)
[2018-04-20] MEDS: NYSTATIN TOPICAL POWDER 15GM TP SCH ×2 (08:03→21:13)
[2018-04-20] MEDS: RIFAXIMIN 550 MG TABLET PO SCH ×2 (08:07→21:13)
[2018-04-20 08:21] VITALS: BP 128/78
[2018-04-20 14:18] VITALS: BP 134/80
[2018-04-20 17:28] VITALS: BP 132/92
[2018-04-20 18:42] VITALS: BP 134/95
[2018-04-21 01:13] VITALS: BP 141/88
[2018-04-21] MEDS: FOLIC ACID 1 MG TABLET PO SCH (05:16)
[2018-04-21] MEDS: LABETALOL 200 MG TABLET PO SCH ×2 (05:16→13:58)
[2018-04-21] MEDS: AMIODARONE 200 MG TABLET PO SCH (05:16)
[2018-04-21] MEDS: NICOTINE 21 MG/24 HR PATCH.TD24 TD SCH (05:20)
[2018-04-21 07:02] VITALS: BP 139/88
[2018-04-21] MEDS: TAMSULOSIN 0.4 MG CAP.ER.24H PO SCH (08:01)
[2018-04-21] MEDS: NYSTATIN TOPICAL POWDER 15GM TP SCH (08:02)
[2018-04-21] MEDS: FUROSEMIDE 40 MG TABLET PO SCH (08:02)
[2018-04-21] MEDS: POTASSIUM CHLORIDE 20 MEQ TAB.ER.PRT PO SCH (08:02)
[2018-04-21] MEDS: PANTOPROZOLE 40MG TABLET PO SCH (08:08)
[2018-04-21 09:27] LABS: BASOPHILS # (AUTO) 0.06 x10^3/uL (0-0.1); BASOPHILS % (AUTO) 1 % (0-1); EOSINOPHILS # (AUTO) 0.14 x10^3/uL (0-0.4); EOSINOPHILS % (AUTO) 2 % (1-7); LYMPHOCYTES # (AUTO) 1.65 x10^3/uL (1-3.4); LYMPHOCYTES % (AUTO) 26 % (22-44); MD NO; MEAN CORPUSCULAR HEMOGLOBIN 27.1 pg (27.5-34.5); MEAN CORPUSCULAR HGB CONC 31.9 g/dL (33.2-36.2); MONOCYTES # (AUTO) 0.66 x10^3/uL (0.2-0.8); MONOCYTES % (AUTO) 10 % (2-9); NEUTROPHILS % (AUTO) 61 % (42-75); PLATELET COUNT 328 x10^3/uL (130-400); RED BLOOD COUNT 3.71 x10^6/uL (4.38-5.82); RED CELL DISTRIBUTION WIDTH 21.7 % (9.4-14.8)
[2018-04-21] MEDS: RIFAXIMIN 550 MG TABLET PO SCH (09:30)
[2018-04-21 09:40] LABS: ALBUMIN 2.8 g/dL (3.4-5.0); ANION GAP 8 mmol/L (5-15); CALCIUM 8.8 mg/dL (8.5-10.1); CHLORIDE 105 mmol/L (98-107); CREATININE 1.64 mg/dL (0.7-1.3)
[2018-04-21 13:29] VITALS: BP 137/83
[2018-04-21] MEDS ORDERED: FURO40TA6 PO (15:36)
[2018-04-21] MEDS ORDERED: LABE200T3 PO (15:36)
[2018-04-21] MEDS ORDERED: FOLI-17 PO (15:36)
[2018-04-21] MEDS ORDERED: DOCU-131 PO (15:36)
[2018-04-21] MEDS ORDERED: NYST60PO TP (15:36)
[2018-04-21] MEDS ORDERED: RIFA550T4 PO (15:36)
[2018-04-21] MEDS ORDERED: NITR0.4T SL (15:36)
[2018-04-21] MEDS ORDERED: AMIO200T42 PO (15:36)
[2018-04-21] MEDS ORDERED: TAMS-11 PO (15:36)
[2018-04-21] MEDS ORDERED: PANT40TA5 PO (15:36)
== END 2018-04-21 16:42 | disposition home or self-care (01) | DRG 291 ==
LOC: ED 03:55 → EDIP 04:46 → 5SO 05:22 → DCLOUNGE 04-21 16:23
PROVIDERS: ADMIT Internal Medicine; ATTEND Internal Medicine
PROC: 0T9B70Z Drainage of Bladder with Drainage Device, Via Natural or Artificial Opening (ICD-10-PCS; principal; 2018-04-15)
DX: I13.0 Hypertensive heart and chronic kidney disease with heart failure and stage 1 through stage 4 chronic kidney disease, or unspecified chronic kidney disease (principal); G93.40 Encephalopathy, unspecified; J96.01 Acute respiratory failure with hypoxia; I50.23 Acute on chronic systolic (congestive) heart failure; N17.9 Acute kidney failure, unspecified; B37.89 Other sites of candidiasis; E44.0 Moderate protein-calorie malnutrition; E87.2 Acidosis; I48.92 Unspecified atrial flutter; N18.4 Chronic kidney disease, stage 4 (severe); D64.9 Anemia, unspecified; E11.22 Type 2 diabetes mellitus with diabetic chronic kidney disease; D50.9 Iron deficiency anemia, unspecified; E83.39 Other disorders of phosphorus metabolism; F14.90 Cocaine use, unspecified, uncomplicated; F17.210 Nicotine dependence, cigarettes, uncomplicated; I48.2 Chronic atrial fibrillation; I27.20 Pulmonary hypertension, unspecified; Z86.73 Personal history of transient ischemic attack (TIA), and cerebral infarction without residual deficits; J44.9 Chronic obstructive pulmonary disease, unspecified; K26.9 Duodenal ulcer, unspecified as acute or chronic, without hemorrhage or perforation; I34.0 Nonrheumatic mitral (valve) insufficiency; N25.0 Renal osteodystrophy; K76.9 Liver disease, unspecified; N40.1 Benign prostatic hyperplasia with lower urinary tract symptoms; R33.8 Other retention of urine; N48.89 Other specified disorders of penis; N50.89 Other specified disorders of the male genital organs; Z83.3 Family history of diabetes mellitus; Z91.14 Patient's other noncompliance with medication regimen; Z99.81 Dependence on supplemental oxygen; Z68.39 Body mass index [BMI] 39.0-39.9, adult; F15.10 Other stimulant abuse, uncomplicated; F10.10 Alcohol abuse, uncomplicated
CPT/HCPCS: 36415; 71045; 76770; 80048; 80053; 80069; 81001; 82140; 82306; 82310; 82570; 82728; 83540; 83550; 83735; 83880; 83970; 84100; 84156; 84443; 84484; 84550; 85025; 85045; 85610; 85730; 87086; 93005; 96374; 99285; J1756; J1940; J3475

== ENCOUNTER 2019-04-03 01:23 | Emergency (ER) | payer MEDICAID ==
[~2019-04-03] VITALS: Ht 170.2 cm; Wt 94.0 kg
[~2019-04-03 01:23] MED LIST changes: +AMLO-150 PO; -AMLO5TAB2 PO; +FURO40TA6 PO; -LABE200T3 PO; +LABE200T6 PO; +NITR0.4T41 SL; +NYST60PO TP; +SENN-177 PO; -SENN1TAB7 PO; +TAMS-11 PO; -THIA100T6 PO; +THIA100T67 PO
[2019-04-03 01:31] VITALS: BP 180/110
--- NOTE | 2019-04-03 02:09 | NUR ---
PT D/C WITH D/C SUMMARY. ALL QUESTIONS ANSWERED. PT AMBULATES TO REGISTRATION DESK WITH STEADY GAIT FOR D/C HOME. PT PROVIDED WITH [facility] INFO FOR MEDICAL TRANSPORT HOME. PT DENIES ANY OTHER NEEDS PERTAINING TO THIS VISIT.
== END 2019-04-03 02:19 ==
LOC: ED 02:10
DX: M54.5 Low back pain (principal); I11.0 Hypertensive heart disease with heart failure; I50.9 Heart failure, unspecified; F17.200 Nicotine dependence, unspecified, uncomplicated; Z86.73 Personal history of transient ischemic attack (TIA), and cerebral infarction without residual deficits; W01.0XXA Fall on same level from slipping, tripping and stumbling without subsequent striking against object, initial encounter; Z00.00 Encounter for general adult medical examination without abnormal findings; Y93.89 Activity, other specified; Y92.89 Other specified places as the place of occurrence of the external cause; Y99.8 Other external cause status
CPT/HCPCS: 99283

== ENCOUNTER 2019-10-22 05:30 | Inpatient (IN) | payer MEDICAID, OTHER ==
[~2019-10-22] VITALS: Ht 167.6 cm; Wt 104.6 kg
[2019-10-22] MEDS ORDERED: LABETALOL 5MG/ML, 20ML IVPush ONE (06:00)
[2019-10-22] MEDS ORDERED: SODIUM CHLORIDE FLUSH 10ML SYR IVF ONE (06:00)
[2019-10-22] MEDS ORDERED: SODIUM CHLORIDE 0.9% 1,000ML IVBOLUS ONE (06:00)
[2019-10-22] MEDS ORDERED: LABETALOL 5MG/ML, 20ML ONE (06:02)
[2019-10-22 06:18] LABS: BASOPHILS # (AUTO) 0.03 x10^3/uL (0-0.1); BASOPHILS % (AUTO) 0 % (0-1); EOSINOPHILS # (AUTO) 0.14 x10^3/uL (0-0.4); EOSINOPHILS % (AUTO) 1 % (1-7); LYMPHOCYTES # (AUTO) 1.04 x10^3/uL (1-3.4); LYMPHOCYTES % (AUTO) 9 % (22-44); MD NO; MEAN CORPUSCULAR HGB CONC 33.2 g/dL (33.2-36.2); MEAN CORPUSCULAR VOLUME 93.4 fL (81-97); MEAN PLATELET VOLUME 7.8 fL (7.4-10.4); MONOCYTES # (AUTO) 0.74 x10^3/uL (0.2-0.8); MONOCYTES % (AUTO) 7 % (2-9); NEUTROPHILS # (AUTO) 9.51 x10^3/uL (1.8-6.8); NEUTROPHILS % (AUTO) 83 % (42-75); PLATELET COUNT 277 x10^3/uL (130-400); RED BLOOD COUNT 4.49 x10^6/uL (4.38-5.82); RED CELL DISTRIBUTION WIDTH 16.1 % (9.4-14.8)
[2019-10-22 06:24] LABS: CALCIUM 8.1 mg/dL (8.5-10.1); CHLORIDE 109 mmol/L (98-107); INTERNATIONAL NORMALIZED RATIO 1.2 (0.93-1.1); PROTHROMBIN TIME 12.5 Seconds (9.6-11.5)
[2019-10-22] MEDS ORDERED: AMIODARONE 150 MG in DEXTROSE 5% 100 ML IV ONE (06:30)
[2019-10-22] MEDS ORDERED: FILTER 0.22 MICRON IV ONE (06:30)
[2019-10-22] MEDS ORDERED: AMIODARONE 50 MG/ML, 3ML IVPush ONE (06:30)
[2019-10-22 06:33] LABS: ALANINE AMINOTRANSFERASE 29 U/L (12-78); ALBUMIN 2.9 g/dL (3.4-5.0); ALKALINE PHOSPHATASE 158 U/L (45-117); ANION GAP 8 mmol/L (5-15); BILIRUBIN,TOTAL 1.3 mg/dL (0.2-1.0); CREATININE 1.63 mg/dL (0.7-1.3); TOTAL PROTEIN 7.3 g/dL (6.4-8.2); TROPONIN I 0.101 ng/mL (0.000-0.045)
[2019-10-22 06:47] LABS: MICROSCOPIC INDICATED
[2019-10-22 07:11] LABS: CULTURE INDICATED? NO
[2019-10-22] MEDS ORDERED: CEFTRIAXONE PMX 1GM/50ML 50 ML ONE (07:20)
[2019-10-22] MEDS ORDERED: CEFTRIAXONE PMX 1GM/50ML 50 ML IVPB ONE (07:30)
[2019-10-22] MEDS ORDERED: AZITHROMYCIN 500 MG in SODIUM CHLORIDE 0.9% 250 ML IVPB ONE (07:30)
[2019-10-22] MEDS ORDERED: LABETALOL 5MG/ML, 20ML IVPush PRN (08:30)
[2019-10-22] MEDS ORDERED: PROMETHAZINE 25 MG/ML, 1ML IM PRN (08:30)
[2019-10-22] MEDS ORDERED: ONDANSETRON 2MG/ML, 2ML IVPush PRN (08:30)
[2019-10-22] MEDS ORDERED: METOPROLOL TARTRATE 25 MG TABLET PO ONE (09:00)
[2019-10-22] MEDS ORDERED: MAGNESIUM SULFATE PMX 2GM/50ML 50 ML IV ONE (09:00)
[2019-10-22] MEDS: CEFTRIAXONE PMX 1GM/50ML 50 ML IV SCH (09:06)
[2019-10-22] MEDS ORDERED: DOXYCYCLINE 100MG TABLET ONE (09:08)
[2019-10-22] MEDS ORDERED: METOPROLOL TARTRATE 25 MG TABLET ONE (09:08)
[2019-10-22] MEDS ORDERED: NICOTINE 14MG/24 HR PATCH.TD24 ONE (09:08)
[2019-10-22 09:25] LABS: TROPONIN I 0.079 ng/mL (0.000-0.045)
[2019-10-22] MEDS: NICOTINE 14MG/24 HR PATCH.TD24 TD SCH (09:33)
[2019-10-22] MEDS: DOXYCYCLINE 100MG TABLET PO SCH ×2 (09:33→20:32)
[2019-10-22 10:56] LABS: CLOSTRIDIUM DIFFICILE ANTIGEN NEGATIVE; CLOSTRIDIUM DIFFICILE TOXIN NEGATIVE (Negative)
[2019-10-22] MEDS ORDERED: GUAIFENESIN 200 MG TABLET ONE (10:58)
[2019-10-22] MEDS: GUAIFENESIN 200 MG TABLET PO SCH ×3 (11:03→20:32)
[2019-10-22] MEDS ORDERED: MAGNESIUM SULFATE PMX 2GM/50ML 50 ML ONE (11:08)
[2019-10-22] MEDS: SODIUM CHLORIDE 0.9% 1,000 ML IV SCH (11:40)
[2019-10-22] MEDS: HEPARIN 5,000 UNITS/ML, 1ML SQ SCH ×3 (11:49→23:58)
[2019-10-22 11:58] VITALS: BP 142/88
[2019-10-22 12:41] LABS: RAPID INFLUENZA A Negative (Negative); RAPID INFLUENZA B Negative (Negative)
[2019-10-22 12:48] VITALS: BP 127/87
[2019-10-22 16:07] LABS: TROPONIN I 0.112 ng/mL (0.000-0.045)
[2019-10-22] MEDS: METOPROLOL TARTRATE 25 MG TABLET PO SCH (17:10)
[2019-10-22] MEDS: ACETAMINOPHEN 325 MG TABLET PO PRN (20:32)
[2019-10-22] MEDS: hydrALAzine 20 MG/ML, 1ML IVPush PRN (20:37)
[2019-10-22 22:15] LABS: TROPONIN I 0.111 ng/mL (0.000-0.045)
[2019-10-22] MEDS ORDERED: ALBUTEROL/IPRATROPIUM 2.5MG/0.5MG, 3 ML ONE (22:20)
[2019-10-22 22:55] VITALS: BP 106/68
[2019-10-23] MEDS: LORATADINE/PSE 5/120MG TAB.ER.12H PO PRN ×2 (00:53→11:02)
[2019-10-23] MEDS: GUAIFENESIN 200 MG TABLET PO SCH ×4 (04:58→21:42)
[2019-10-23] MEDS: SODIUM CHLORIDE 0.9% 1,000 ML IV SCH (04:58)
[2019-10-23] MEDS: METOPROLOL TARTRATE 25 MG TABLET PO SCH ×2 (04:59→16:11)
[2019-10-23 05:07] LABS: BASOPHILS # (AUTO) 0.09 x10^3/uL (0-0.1); BASOPHILS % (AUTO) 1 % (0-1); EOSINOPHILS # (AUTO) 0.16 x10^3/uL (0-0.4); EOSINOPHILS % (AUTO) 2 % (1-7); LYMPHOCYTES # (AUTO) 1.63 x10^3/uL (1-3.4); LYMPHOCYTES % (AUTO) 17 % (22-44); MD NO; MEAN CORPUSCULAR HEMOGLOBIN 30.7 pg (27.5-34.5); MEAN CORPUSCULAR HGB CONC 32.7 g/dL (33.2-36.2); MEAN CORPUSCULAR VOLUME 93.8 fL (81-97); MEAN PLATELET VOLUME 7.9 fL (7.4-10.4); MONOCYTES # (AUTO) 0.88 x10^3/uL (0.2-0.8); MONOCYTES % (AUTO) 9 % (2-9); NEUTROPHILS # (AUTO) 6.98 x10^3/uL (1.8-6.8); NEUTROPHILS % (AUTO) 72 % (42-75); PLATELET COUNT 297 x10^3/uL (130-400); RED BLOOD COUNT 4.63 x10^6/uL (4.38-5.82); RED CELL DISTRIBUTION WIDTH 15.9 % (9.4-14.8)
[2019-10-23 05:21] LABS: ALBUMIN 2.7 g/dL (3.4-5.0); ANION GAP 9 mmol/L (5-15); CALCIUM 8.4 mg/dL (8.5-10.1); CHLORIDE 108 mmol/L (98-107)
[2019-10-23 05:26] LABS: ALANINE AMINOTRANSFERASE 30 U/L (12-78); ALKALINE PHOSPHATASE 141 U/L (45-117); BILIRUBIN,TOTAL 1.2 mg/dL (0.2-1.0); CREATININE 1.71 mg/dL (0.7-1.3); TOTAL PROTEIN 7.1 g/dL (6.4-8.2)
[2019-10-23 06:20] VITALS: BP 143/96
[2019-10-23 07:05] VITALS: BP 123/99
[2019-10-23] MEDS: DOXYCYCLINE 100MG TABLET PO SCH ×2 (08:39→21:42)
[2019-10-23] MEDS: CEFTRIAXONE PMX 1GM/50ML 50 ML IV SCH (08:39)
[2019-10-23] MEDS: NICOTINE 14MG/24 HR PATCH.TD24 TD SCH (08:39)
[2019-10-23] MEDS: HEPARIN 5,000 UNITS/ML, 1ML SQ SCH ×2 (08:39→16:12)
[2019-10-23 13:31] VITALS: BP 149/107
[2019-10-23] MEDS: ALBUTEROL/IPRATROPIUM 2.5MG/0.5MG, 3 ML NPPB PRN ×2 (16:24→21:10)
[2019-10-23 21:46] VITALS: BP 155/88
[2019-10-23 23:08] VITALS: BP 156/113
[2019-10-24] MEDS: HEPARIN 5,000 UNITS/ML, 1ML SQ SCH ×3 (01:04→18:10)
[2019-10-24 01:07] VITALS: BP 157/112
[2019-10-24] MEDS ORDERED: LABETALOL 5MG/ML, 20ML IVPush ONE (01:30)
[2019-10-24] MEDS ORDERED: LABETALOL 20 MG/4 ML IVPush PRN (02:00)
[2019-10-24] MEDS: METOPROLOL TARTRATE 25 MG TABLET PO SCH (05:09)
[2019-10-24] MEDS: GUAIFENESIN 200 MG TABLET PO SCH ×4 (05:09→20:59)
[2019-10-24 05:43] LABS: BASOPHILS # (AUTO) 0.05 x10^3/uL (0-0.1); BASOPHILS % (AUTO) 1 % (0-1); EOSINOPHILS # (AUTO) 0.09 x10^3/uL (0-0.4); EOSINOPHILS % (AUTO) 1 % (1-7); LYMPHOCYTES # (AUTO) 1.22 x10^3/uL (1-3.4); LYMPHOCYTES % (AUTO) 15 % (22-44); MD NO; MEAN CORPUSCULAR HEMOGLOBIN 30.5 pg (27.5-34.5); MEAN CORPUSCULAR HGB CONC 32.5 g/dL (33.2-36.2); MEAN CORPUSCULAR VOLUME 93.9 fL (81-97); MEAN PLATELET VOLUME 8.4 fL (7.4-10.4); MONOCYTES # (AUTO) 0.86 x10^3/uL (0.2-0.8); MONOCYTES % (AUTO) 11 % (2-9); NEUTROPHILS # (AUTO) 6.01 x10^3/uL (1.8-6.8); NEUTROPHILS % (AUTO) 73 % (42-75); PLATELET COUNT 288 x10^3/uL (130-400)
[2019-10-24 05:46] LABS: ALBUMIN 2.9 g/dL (3.4-5.0); ANION GAP 10 mmol/L (5-15); CALCIUM 8.5 mg/dL (8.5-10.1); CHLORIDE 106 mmol/L (98-107)
[2019-10-24 05:54] LABS: ALANINE AMINOTRANSFERASE 38 U/L (12-78); ALKALINE PHOSPHATASE 166 U/L (45-117); BILIRUBIN,TOTAL 0.9 mg/dL (0.2-1.0); CREATININE 1.78 mg/dL (0.7-1.3); TOTAL PROTEIN 7.3 g/dL (6.4-8.2); TROPONIN I 0.088 ng/mL (0.000-0.045)
[2019-10-24 07:44] VITALS: BP 149/97
[2019-10-24] MEDS: ALBUTEROL/IPRATROPIUM 2.5MG/0.5MG, 3 ML NPPB PRN ×2 (09:47→15:22)
[2019-10-24] MEDS: DOXYCYCLINE 100MG TABLET PO SCH ×2 (09:57→20:59)
[2019-10-24] MEDS: CEFTRIAXONE PMX 1GM/50ML 50 ML IV SCH (09:57)
[2019-10-24] MEDS: NICOTINE 14MG/24 HR PATCH.TD24 TD SCH (09:58)
[2019-10-24] MEDS ORDERED: MAGNESIUM SULFATE PMX 2GM/50ML 50 ML IV ONE (11:30)
[2019-10-24 13:19] VITALS: BP 153/89
[2019-10-24 16:00] VITALS: BP 130/86
[2019-10-24] MEDS: ACETAMINOPHEN 325 MG TABLET PO PRN (16:24)
[2019-10-24 18:01] VITALS: BP 162/95
[2019-10-24] MEDS: METOPROLOL SUCCINATE 50 MG TAB.ER.24H PO SCH (18:02)
[2019-10-24] MEDS: methylPREDNISolone SOD SUCC 125 MG/2 ML IVPush SCH (18:02)
[2019-10-24 18:53] LABS: MICROSCOPIC AUTO
[2019-10-24 18:54] LABS: CULTURE INDICATED? NO
[2019-10-24 19:19] VITALS: BP 159/97
[2019-10-25] MEDS: methylPREDNISolone SOD SUCC 125 MG/2 ML IVPush SCH ×3 (00:43→11:11)
[2019-10-25] MEDS: HEPARIN 5,000 UNITS/ML, 1ML SQ SCH ×2 (00:43→08:41)
[2019-10-25 01:42] VITALS: BP 162/106
[2019-10-25] MEDS: GUAIFENESIN 200 MG TABLET PO SCH ×2 (06:19→11:14)
[2019-10-25 08:04] VITALS: BP 177/114
[2019-10-25] MEDS: METOPROLOL SUCCINATE 50 MG TAB.ER.24H PO SCH (08:41)
[2019-10-25] MEDS: DOXYCYCLINE 100MG TABLET PO SCH (08:41)
[2019-10-25] MEDS: hydrALAzine 20 MG/ML, 1ML IVPush PRN (08:41)
[2019-10-25] MEDS: NICOTINE 14MG/24 HR PATCH.TD24 TD SCH (08:44)
[2019-10-25] MEDS: CEFTRIAXONE PMX 1GM/50ML 50 ML IV SCH (08:47)
[2019-10-25] MEDS ORDERED: DOXY100T PO (11:49)
[2019-10-25] MEDS ORDERED: LISI5TAB7 PO (11:49)
[2019-10-25] MEDS ORDERED: SPIR25TA PO (11:49)
[2019-10-25] MEDS ORDERED: RIVA20TA PO (11:49)
[2019-10-25] MEDS ORDERED: METO-93 PO (11:49)
== END 2019-10-25 13:20 | disposition home or self-care (01) | DRG 291 ==
LOC: ED 07:11 → EDIP 08:30 → 5SO 11:52 → DCLOUNGE 10-25 13:07
PROVIDERS: ADMIT Internal Medicine; ATTEND Family Medicine
PROC: 0T9B70Z Drainage of Bladder with Drainage Device, Via Natural or Artificial Opening (ICD-10-PCS; principal; 2019-10-22)
DX: I13.0 Hypertensive heart and chronic kidney disease with heart failure and stage 1 through stage 4 chronic kidney disease, or unspecified chronic kidney disease (principal); I50.43 Acute on chronic combined systolic (congestive) and diastolic (congestive) heart failure; J18.9 Pneumonia, unspecified organism; I24.8 Other forms of acute ischemic heart disease; I48.20 Chronic atrial fibrillation, unspecified; J98.11 Atelectasis; E83.42 Hypomagnesemia; E86.0 Dehydration; E88.09 Other disorders of plasma-protein metabolism, not elsewhere classified; N18.3 Chronic kidney disease, stage 3 (moderate); N40.0 Benign prostatic hyperplasia without lower urinary tract symptoms; I08.1 Rheumatic disorders of both mitral and tricuspid valves; I27.20 Pulmonary hypertension, unspecified; Z71.6 Tobacco abuse counseling; Z72.0 Tobacco use; Z86.73 Personal history of transient ischemic attack (TIA), and cerebral infarction without residual deficits; Z87.11 Personal history of peptic ulcer disease; Z91.14 Patient's other noncompliance with medication regimen; Z88.8 Allergy status to other drugs, medicaments and biological substances
CPT/HCPCS: 36415; 84145; 87046; 87400; 87427; 89055; 96365; 96366; 96375; 96376; 99285; C8929; J7620; 71045; 80053; 81001; 83605; 83690; 83735; 83880; 84100; 84443; 84484; 85025; 85610; 85730; 87040; 87324; 93005; 94640; G0378; J0456; J0696; J1644; Q9957; J0282; J0360; J2930; J3475; J7030; J7050

== ENCOUNTER 2019-10-27 13:18 | Inpatient (IN) | payer MEDICAID, OTHER ==
[~2019-10-27] VITALS: Ht 167.6 cm; Wt 93.0 kg
[~2019-10-27 13:18] MED LIST changes: +DOXY100T PO; +LISI5TAB7 PO; +METO-93 PO; +RIVA20TA PO; +SPIR25TA PO
--- NOTE | 2019-10-27 13:36 | NUR ---
PT BIB BY [facility] FOR SOB. EXPIRATORY WHEEZES. PT IS 95% ON ROOM AIR. HOOKED UP TO TAR LEVELER.
[2019-10-27] MEDS ORDERED: ASPIRIN 81 MG TABLET CHEW PO ONE (14:00)
[2019-10-27] MEDS ORDERED: ASPIRIN 81 MG TABLET CHEW ONE (14:02)
[2019-10-27 14:14] LABS: BASOPHILS # (AUTO) 0.02 x10^3/uL (0-0.1); BASOPHILS % (AUTO) 0 % (0-1); EOSINOPHILS # (AUTO) 0.05 x10^3/uL (0-0.4); EOSINOPHILS % (AUTO) 1 % (1-7); LYMPHOCYTES # (AUTO) 1.25 x10^3/uL (1-3.4); LYMPHOCYTES % (AUTO) 13 % (22-44); MD NO; MEAN CORPUSCULAR HEMOGLOBIN 30.7 pg (27.5-34.5); MEAN CORPUSCULAR HGB CONC 32.5 g/dL (33.2-36.2); MEAN CORPUSCULAR VOLUME 94.4 fL (81-97); MEAN PLATELET VOLUME 7.9 fL (7.4-10.4); MONOCYTES # (AUTO) 0.83 x10^3/uL (0.2-0.8); MONOCYTES % (AUTO) 9 % (2-9); NEUTROPHILS # (AUTO) 7.46 x10^3/uL (1.8-6.8); NEUTROPHILS % (AUTO) 78 % (42-75); PLATELET COUNT 332 x10^3/uL (130-400); RED BLOOD COUNT 4.53 x10^6/uL (4.38-5.82); RED CELL DISTRIBUTION WIDTH 17.1 % (9.4-14.8)
--- NOTE | 2019-10-27 14:14 | NUR ---
PT RESTING IN HOSPITAL BED. URINAL PROVIDED
--- NOTE | 2019-10-27 14:27 | NUR ---
PUT PT ON 2 LITERS 02 VIA NC. PT SAT AT 97%
[2019-10-27 14:28] LABS: ALANINE AMINOTRANSFERASE 98 U/L (12-78); ALBUMIN 2.9 g/dL (3.4-5.0); ANION GAP 11 mmol/L (5-15); CALCIUM 8.3 mg/dL (8.5-10.1); CHLORIDE 113 mmol/L (98-107); CREATININE 1.53 mg/dL (0.7-1.3)
[2019-10-27 14:32] LABS: ALKALINE PHOSPHATASE 193 U/L (45-117); BILIRUBIN,TOTAL 0.6 mg/dL (0.2-1.0); TROPONIN I 0.069 ng/mL (0.000-0.045)
--- NOTE | 2019-10-27 14:38 | NUR ---
CLEANED PTS ANKLES.
[2019-10-27] MEDS ORDERED: CEFTRIAXONE PMX 1GM/50ML 50 ML IVPB ONE (15:00)
[2019-10-27] MEDS ORDERED: FUROSEMIDE 40 MG/4 ML IV ONE (15:00)
[2019-10-27] MEDS ORDERED: AZITHROMYCIN 500 MG in SODIUM CHLORIDE 0.9% 250 ML IVPB ONE (15:00)
[2019-10-27] MEDS ORDERED: CEFTRIAXONE PMX 1GM/50ML 50 ML ONE (15:07)
[2019-10-27] MEDS ORDERED: FUROSEMIDE 40 MG/4 ML ONE (15:07)
[2019-10-27] MEDS ORDERED: SODIUM CHLORIDE FLUSH 10ML SYR IVF PRN (15:30)
--- NOTE | 2019-10-27 15:31 | NUR ---
PT IN CT
[2019-10-27] MEDS ORDERED: TRAZODONE 50MG TABLET PO PRN (16:00)
[2019-10-27] MEDS: FUROSEMIDE 20 MG/2 ML IV SCH ×2 (16:00→21:26)
[2019-10-27] MEDS ORDERED: ONDANSETRON 2MG/ML, 2ML IVPush PRN (16:00)
[2019-10-27] MEDS ORDERED: MAGNESIUM SULFATE PMX 2GM/50ML 50 ML IV ONE (16:00)
[2019-10-27] MEDS ORDERED: TAMSULOSIN 0.4 MG CAP.ER.24H PO ONE ×2 (16:00→21:30)
[2019-10-27] MEDS ORDERED: GUAIFENESIN/COD200MG-20MG/10ML LIQUID PO PRN (16:00)
[2019-10-27] MEDS ORDERED: OXYcodone IR 5MG TABLET PO PRN (16:00)
--- NOTE | 2019-10-27 17:29 | NUR ---
TASK RN: PT RESTING ON MYKEL. DAVID. PT VERBALIZES UNDERSTANDING POC. NO NEEDS REQUESTED AT THIS TIME.
[2019-10-27] MEDS: AMPICILLIN/SULBACTAM 3 GM in SODIUM CHLORIDE 0.9% 100 ML IV SCH (18:12)
[2019-10-27 20:30] VITALS: BP 146/77
[2019-10-27] MEDS: METOPROLOL SUCCINATE 50 MG TAB.ER.24H PO SCH (21:25)
[2019-10-27] MEDS: DOXYCYCLINE 100MG TABLET PO SCH (21:26)
[2019-10-27 23:25] LABS: TROPONIN I 0.086 ng/mL (0.000-0.045)
[2019-10-28 02:16] VITALS: BP 136/54
[2019-10-28] MEDS: AMPICILLIN/SULBACTAM 3 GM in SODIUM CHLORIDE 0.9% 100 ML IV SCH ×2 (04:07→17:02)
[2019-10-28 06:12] LABS: CHLORIDE 113 mmol/L (98-107)
[2019-10-28 06:19] LABS: ALANINE AMINOTRANSFERASE 87 U/L (12-78); ALKALINE PHOSPHATASE 197 U/L (45-117); ANION GAP 12 mmol/L (5-15); BILIRUBIN,TOTAL 0.6 mg/dL (0.2-1.0); CALCIUM 8.5 mg/dL (8.5-10.1); CREATININE 1.54 mg/dL (0.7-1.3); TOTAL PROTEIN 7.1 g/dL (6.4-8.2)
[2019-10-28] MEDS ORDERED: REGADENOSON 0.4 MG/5 ML SYRINGE ONE (08:56)
[2019-10-28] MEDS ORDERED: LISINOPRIL 5 MG TABLET PO SCH (09:00)
[2019-10-28] MEDS: FUROSEMIDE 20 MG/2 ML IV SCH ×3 (09:00→22:13)
[2019-10-28 11:59] LABS: BASOPHILS # (AUTO) 0.01 x10^3/uL (0-0.1); BASOPHILS % (AUTO) 0 % (0-1); EOSINOPHILS # (AUTO) 0.06 x10^3/uL (0-0.4); EOSINOPHILS % (AUTO) 1 % (1-7); LYMPHOCYTES # (AUTO) 1.09 x10^3/uL (1-3.4); LYMPHOCYTES % (AUTO) 14 % (22-44); MD NO; MEAN CORPUSCULAR HEMOGLOBIN 30.8 pg (27.5-34.5); MEAN CORPUSCULAR HGB CONC 32.5 g/dL (33.2-36.2); MEAN CORPUSCULAR VOLUME 94.9 fL (81-97); MEAN PLATELET VOLUME 7.9 fL (7.4-10.4); MONOCYTES # (AUTO) 0.66 x10^3/uL (0.2-0.8); MONOCYTES % (AUTO) 8 % (2-9); NEUTROPHILS # (AUTO) 6.21 x10^3/uL (1.8-6.8); NEUTROPHILS % (AUTO) 77 % (42-75); PLATELET COUNT 279 x10^3/uL (130-400); RED BLOOD COUNT 4.61 x10^6/uL (4.38-5.82); RED CELL DISTRIBUTION WIDTH 16.8 % (9.4-14.8)
[2019-10-28 12:05] LABS: INTERNATIONAL NORMALIZED RATIO 1.21 (0.93-1.1); PROTHROMBIN TIME 12.8 Seconds (9.6-11.5)
[2019-10-28 12:16] VITALS: BP 149/79
[2019-10-28] MEDS: SPIRONOLACTONE 25 MG TABLET PO SCH (12:17)
[2019-10-28] MEDS: METOPROLOL SUCCINATE 50 MG TAB.ER.24H PO SCH ×2 (12:18→22:14)
[2019-10-28] MEDS: ACETAMINOPHEN 325 MG TABLET PO PRN (12:18)
[2019-10-28] MEDS: DOXYCYCLINE 100MG TABLET PO SCH ×2 (12:18→22:14)
[2019-10-28] MEDS: SODIUM BICARBONATE 650 MG TABLET PO SCH ×2 (12:18→22:13)
[2019-10-28] MEDS: RIVAROXABAN 20 MG TABLET PO SCH (12:18)
[2019-10-28 15:15] VITALS: BP 151/87
[2019-10-28 18:55] LABS: CLOSTRIDIUM DIFFICILE ANTIGEN NEGATIVE; CLOSTRIDIUM DIFFICILE TOXIN NEGATIVE (Negative)
[2019-10-28 20:28] VITALS: BP 147/75
[2019-10-29 01:33] VITALS: BP 144/86
[2019-10-29] MEDS: AMPICILLIN/SULBACTAM 3 GM in SODIUM CHLORIDE 0.9% 100 ML IV SCH ×2 (04:24→16:36)
[2019-10-29 05:12] LABS: ALANINE AMINOTRANSFERASE 87 U/L (12-78); ALBUMIN 2.8 g/dL (3.4-5.0); ANION GAP 9 mmol/L (5-15); CALCIUM 8.2 mg/dL (8.5-10.1); CHLORIDE 111 mmol/L (98-107); CREATININE 1.46 mg/dL (0.7-1.3)
[2019-10-29 05:14] LABS: ALKALINE PHOSPHATASE 218 U/L (45-117); BILIRUBIN,TOTAL 0.7 mg/dL (0.2-1.0); TOTAL PROTEIN 6.8 g/dL (6.4-8.2)
[2019-10-29 06:49] VITALS: BP 147/103
[2019-10-29] MEDS ORDERED: DIPHENOXYLATE/ATROPINE TABLET PO PRN (07:30)
[2019-10-29] MEDS ORDERED: MAGNESIUM SULFATE PMX 2GM/50ML 50 ML IV ONE (09:00)
[2019-10-29] MEDS: FUROSEMIDE 40 MG TABLET PO SCH ×2 (10:19→16:37)
[2019-10-29] MEDS: RIVAROXABAN 20 MG TABLET PO SCH (10:19)
[2019-10-29] MEDS: DOXYCYCLINE 100MG TABLET PO SCH ×2 (10:19→21:23)
[2019-10-29] MEDS: SPIRONOLACTONE 25 MG TABLET PO SCH (10:19)
[2019-10-29] MEDS: METOPROLOL SUCCINATE 50 MG TAB.ER.24H PO SCH ×2 (10:19→21:23)
[2019-10-29] MEDS: LISINOPRIL 10 MG TABLET PO SCH ×2 (10:20→21:00)
[2019-10-29] MEDS: SODIUM BICARBONATE 650 MG TABLET PO SCH ×2 (10:20→21:22)
[2019-10-29 13:49] VITALS: BP 157/83
[2019-10-29 21:20] VITALS: BP 148/94
[2019-10-30 02:35] VITALS: BP 148/94
[2019-10-30] MEDS: AMPICILLIN/SULBACTAM 3 GM in SODIUM CHLORIDE 0.9% 100 ML IV SCH (03:58)
[2019-10-30 06:00] LABS: ANION GAP 7 mmol/L (5-15); CALCIUM 8.1 mg/dL (8.5-10.1); CHLORIDE 110 mmol/L (98-107)
[2019-10-30 06:02] LABS: CREATININE 1.24 mg/dL (0.7-1.3)
[2019-10-30 09:00] VITALS: BP 141/98
[2019-10-30 10:20] VITALS: BP 156/82
[2019-10-30] MEDS: FUROSEMIDE 40 MG TABLET PO SCH ×2 (10:22→17:16)
[2019-10-30] MEDS: DOXYCYCLINE 100MG TABLET PO SCH ×2 (10:23→21:52)
[2019-10-30] MEDS: LISINOPRIL 10 MG TABLET PO SCH ×2 (10:23→21:53)
[2019-10-30] MEDS: SPIRONOLACTONE 25 MG TABLET PO SCH (10:23)
[2019-10-30] MEDS: SODIUM BICARBONATE 650 MG TABLET PO SCH (10:24)
[2019-10-30] MEDS: METOPROLOL SUCCINATE 50 MG TAB.ER.24H PO SCH ×2 (10:24→21:52)
[2019-10-30] MEDS: RIVAROXABAN 20 MG TABLET PO SCH (10:24)
[2019-10-30] MEDS: DIPHENOXYLATE/ATROPINE TABLET PO SCH ×3 (11:15→21:53)
[2019-10-30 13:26] VITALS: BP 121/60
[2019-10-30 21:45] VITALS: BP 137/77
[2019-10-30] MEDS: AMOXICILLIN/CLAV 875-125MG TABLET PO SCH (21:52)
[2019-10-31 02:11] VITALS: BP 129/52
[2019-10-31] MEDS: DIPHENOXYLATE/ATROPINE TABLET PO SCH ×4 (05:31→20:19)
[2019-10-31] MEDS: FUROSEMIDE 40 MG TABLET PO SCH ×2 (08:11→16:19)
[2019-10-31 09:07] VITALS: BP 110/82
[2019-10-31] MEDS: RIVAROXABAN 20 MG TABLET PO SCH (09:49)
[2019-10-31] MEDS: DOXYCYCLINE 100MG TABLET PO SCH ×2 (09:49→20:19)
[2019-10-31] MEDS: AMOXICILLIN/CLAV 875-125MG TABLET PO SCH ×2 (09:49→20:19)
[2019-10-31] MEDS: SPIRONOLACTONE 25 MG TABLET PO SCH (09:51)
[2019-10-31] MEDS: METOPROLOL SUCCINATE 50 MG TAB.ER.24H PO SCH ×2 (09:51→20:20)
[2019-10-31] MEDS: LISINOPRIL 10 MG TABLET PO SCH ×2 (09:51→20:20)
[2019-10-31] MEDS ORDERED: FURO40TA6 PO (10:00)
[2019-10-31] MEDS ORDERED: METO-93 PO (10:00)
[2019-10-31] MEDS ORDERED: RIVA20TA PO (10:00)
[2019-10-31] MEDS ORDERED: AMOX1TAB12 PO (10:00)
[2019-10-31] MEDS ORDERED: SPIR25TA PO (10:00)
[2019-10-31] MEDS ORDERED: LISI-167 PO (10:00)
[2019-10-31 14:35] VITALS: BP 119/78
[2019-10-31 17:59] VITALS: BP 127/87
[2019-10-31 19:01] VITALS: BP 114/81
[2019-10-31 20:16] VITALS: BP 108/75
[2019-11-01 01:22] VITALS: BP 115/75
[2019-11-01] MEDS: DIPHENOXYLATE/ATROPINE TABLET PO SCH ×4 (05:24→22:45)
[2019-11-01 05:59] LABS: ANION GAP 7 mmol/L (5-15); CALCIUM 8.7 mg/dL (8.5-10.1); CHLORIDE 107 mmol/L (98-107); CREATININE 1.26 mg/dL (0.7-1.3)
[2019-11-01 07:02] VITALS: BP 126/85
[2019-11-01] MEDS: AMOXICILLIN/CLAV 875-125MG TABLET PO SCH ×2 (10:22→21:02)
[2019-11-01] MEDS: LISINOPRIL 10 MG TABLET PO SCH ×2 (10:23→21:01)
[2019-11-01] MEDS: SPIRONOLACTONE 25 MG TABLET PO SCH (10:23)
[2019-11-01] MEDS: RIVAROXABAN 20 MG TABLET PO SCH (10:23)
[2019-11-01] MEDS: METOPROLOL SUCCINATE 50 MG TAB.ER.24H PO SCH ×2 (10:23→21:01)
[2019-11-01] MEDS: DOXYCYCLINE 100MG TABLET PO SCH ×2 (10:23→21:02)
[2019-11-01] MEDS: FUROSEMIDE 40 MG TABLET PO SCH ×2 (10:24→17:00)
[2019-11-01 13:23] VITALS: BP 135/84
[2019-11-01 19:14] VITALS: BP 137/84
[2019-11-01] MEDS: PSYLLIUM PACKET PO SCH (21:00)
[2019-11-02 02:02] VITALS: BP 143/82
[2019-11-02 02:46] VITALS: BP 144/73
[2019-11-02] MEDS: DIPHENOXYLATE/ATROPINE TABLET PO SCH ×2 (05:17→10:11)
[2019-11-02 07:10] VITALS: BP 124/86
[2019-11-02] MEDS: FUROSEMIDE 40 MG TABLET PO SCH (10:01)
[2019-11-02] MEDS: AMOXICILLIN/CLAV 875-125MG TABLET PO SCH (10:01)
[2019-11-02] MEDS: LISINOPRIL 10 MG TABLET PO SCH (10:02)
[2019-11-02] MEDS: DOXYCYCLINE 100MG TABLET PO SCH (10:02)
[2019-11-02] MEDS: METOPROLOL SUCCINATE 50 MG TAB.ER.24H PO SCH (10:02)
[2019-11-02] MEDS: SPIRONOLACTONE 25 MG TABLET PO SCH (10:02)
[2019-11-02] MEDS: PSYLLIUM PACKET PO SCH (10:11)
[2019-11-02] MEDS: RIVAROXABAN 20 MG TABLET PO SCH (10:13)
[2019-11-02] MEDS: ACETAMINOPHEN 325 MG TABLET PO PRN (12:34)
[2019-11-02] MEDS ORDERED: FLU VACC QS2019-20 36MOS UP/PF 0.5 ML IM-VACC ONE (13:30)
== END 2019-11-02 13:10 | DRG 871 ==
LOC: SUATTDRO 15:26 → ED 15:32 → EDIP 15:33 → 5SO 18:47 → 3N 10-31 17:36
PROVIDERS: ADMIT Hospitalist; ATTEND Hospitalist
DX: A41.9 Sepsis, unspecified organism (principal); J15.9 Unspecified bacterial pneumonia; J96.01 Acute respiratory failure with hypoxia; I50.23 Acute on chronic systolic (congestive) heart failure; I48.20 Chronic atrial fibrillation, unspecified; J44.0 Chronic obstructive pulmonary disease with (acute) lower respiratory infection; J44.1 Chronic obstructive pulmonary disease with (acute) exacerbation; I13.0 Hypertensive heart and chronic kidney disease with heart failure and stage 1 through stage 4 chronic kidney disease, or unspecified chronic kidney disease; F17.210 Nicotine dependence, cigarettes, uncomplicated; I25.10 Atherosclerotic heart disease of native coronary artery without angina pectoris; I27.20 Pulmonary hypertension, unspecified; K74.60 Unspecified cirrhosis of liver; I08.1 Rheumatic disorders of both mitral and tricuspid valves; Y95 Nosocomial condition; R19.7 Diarrhea, unspecified; N18.3 Chronic kidney disease, stage 3 (moderate); I25.2 Old myocardial infarction; Z87.01 Personal history of pneumonia (recurrent); Z86.73 Personal history of transient ischemic attack (TIA), and cerebral infarction without residual deficits; Z79.01 Long term (current) use of anticoagulants; Z59.0 Homelessness
CPT/HCPCS: 36415; 71045; 74176; 78452; 80048; 80053; 80074; 83605; 83690; 83735; 83880; 84100; 84145; 84484; 85025; 85610; 87040; 87046; 87324; 93005; 93017; 99291; G0378; J0295; J0456; J0696; J1940; J2785; A9502; C9898; J3475; J7050

== ENCOUNTER 2019-12-23 20:38 | Emergency (ER) | payer MEDICAID, OTHER ==
[~2019-12-23] VITALS: Ht 162.6 cm; Wt 91.8 kg
[~2019-12-23 20:38] MED LIST changes: +AMOX1TAB12 PO; +LISI-167 PO
--- NOTE | 2019-12-23 21:14 | NUR ---
PT C/O CP STARTING X2 DAYS AGO. PT REPORTS INTERMITTENT PRESSURE, BUT HAS NOT HAD CP SINCE YESTERDAY. PT REPORTS BEING RECENTLY HOMELESS. PT REPORTS HIS LIPS ARE CHAPPED ONLY OTHER C/O. PT CONNECTED TO ALL MONITORING, EKG PERFORMED IN TRIAGE, CALL LIGHT WITHIN REACH, ALL SAFETY MEASURES IN PLACE.
--- NOTE | 2019-12-23 21:46 | NUR ---
PT PROVIDED URINAL. IMAGING IN ROOM AT THIS TIME.
[2019-12-23 22:15] LABS: BASOPHILS # (AUTO) 0.04 x10^3/uL (0-0.1); BASOPHILS % (AUTO) 0 % (0-1); EOSINOPHILS # (AUTO) 0.19 x10^3/uL (0-0.4); EOSINOPHILS % (AUTO) 2 % (1-7); LYMPHOCYTES # (AUTO) 1.59 x10^3/uL (1-3.4); LYMPHOCYTES % (AUTO) 19 % (22-44); MD NO; MEAN CORPUSCULAR HEMOGLOBIN 30.7 pg (27.5-34.5); MEAN CORPUSCULAR HGB CONC 33.3 g/dL (33.2-36.2); MEAN CORPUSCULAR VOLUME 92.2 fL (81-97); MEAN PLATELET VOLUME 7.6 fL (7.4-10.4); MONOCYTES # (AUTO) 0.73 x10^3/uL (0.2-0.8); MONOCYTES % (AUTO) 9 % (2-9); NEUTROPHILS % (AUTO) 70 % (42-75); PLATELET COUNT 238 x10^3/uL (130-400); RED BLOOD COUNT 4.02 x10^6/uL (4.38-5.82); RED CELL DISTRIBUTION WIDTH 16.9 % (9.4-14.8)
[2019-12-23 22:19] LABS: ALBUMIN 3.1 g/dL (3.4-5.0); ANION GAP 9 mmol/L (5-15); CALCIUM 8.9 mg/dL (8.5-10.1); CHLORIDE 112 mmol/L (98-107); CREATININE 1.53 mg/dL (0.7-1.3)
[2019-12-23 22:22] LABS: TROPONIN I < 0.015 ng/mL (0.000-0.045)
--- NOTE | 2019-12-23 22:42 | NUR ---
PT RESTING ON GURNEY WITH EYES CLOSED. RESPIRATIONS EVEN AND NONLABORED, CALL LIGHT WITHIN REACH, MONITORING IN PLACE.
[2019-12-23 23:32] VITALS: BP 110/64
--- NOTE | 2019-12-23 23:49 | NUR ---
PT BECAME VERBALLY ABUSIVE AFTER RECEIVING D/C PAPERWORK, SECURITY CALLED FOR ASSISTANCE TO D/C.
== END 2019-12-23 23:55 | disposition home or self-care (01) ==
LOC: ED 21:02
DX: I48.20 Chronic atrial fibrillation, unspecified (principal); R00.2 Palpitations; F15.10 Other stimulant abuse, uncomplicated; Z72.9 Problem related to lifestyle, unspecified; I11.0 Hypertensive heart disease with heart failure; I50.9 Heart failure, unspecified; J44.9 Chronic obstructive pulmonary disease, unspecified; Z86.73 Personal history of transient ischemic attack (TIA), and cerebral infarction without residual deficits
CPT/HCPCS: 36415; 71045; 80048; 82040; 84484; 85025; 93005; 99285

== ENCOUNTER 2019-12-27 13:52 | Emergency (ER) | payer MEDICAID ==
[~2019-12-27] VITALS: Ht 167.6 cm; Wt 91.0 kg
[2019-12-27 14:02] VITALS: BP 142/88
--- NOTE | 2019-12-27 14:09 | NUR ---
VIVIAN. REPORT RECEIVED FROM EMS. PT WAS DC HERE ABOUT 4 DAYS AGO WITH MEDS(PNA/A-FIB/CHF). PT IS OUT OF MEDS SINCE THEN. C/O DZY/WEAKNESS. PT'S AOX4. RESPS EVEN AND UNLABORED. ALL MONITORS IN PLACE. CALL LIGHT WITHIN REACH. EDMD AT BEDSIDE TO EVALUATE AT THIS TIME.
[2019-12-27 14:45] LABS: BASOPHILS # (AUTO) 0.03 x10^3/uL (0-0.1); BASOPHILS % (AUTO) 0 % (0-1); EOSINOPHILS # (AUTO) 0.09 x10^3/uL (0-0.4); EOSINOPHILS % (AUTO) 1 % (1-7); LYMPHOCYTES # (AUTO) 1.33 x10^3/uL (1-3.4); LYMPHOCYTES % (AUTO) 16 % (22-44); MD NO; MEAN CORPUSCULAR HGB CONC 33.7 g/dL (33.2-36.2); MEAN PLATELET VOLUME 7.2 fL (7.4-10.4); MONOCYTES # (AUTO) 0.56 x10^3/uL (0.2-0.8); MONOCYTES % (AUTO) 6 % (2-9); NEUTROPHILS # (AUTO) 6.63 x10^3/uL (1.8-6.8); NEUTROPHILS % (AUTO) 77 % (42-75); PLATELET COUNT 298 x10^3/uL (130-400); RED BLOOD COUNT 4.44 x10^6/uL (4.38-5.82); RED CELL DISTRIBUTION WIDTH 16.7 % (9.4-14.8)
[2019-12-27 14:46] LABS: ANION GAP 7 mmol/L (5-15); CALCIUM 9.1 mg/dL (8.5-10.1); CHLORIDE 111 mmol/L (98-107)
[2019-12-27 14:49] LABS: TROPONIN I < 0.015 ng/mL (0.000-0.045)
--- NOTE | 2019-12-27 15:25 | NUR ---
Patient given discharge instructions and they have confirmed that they understand the instructions. Patient ambulatory with steady gait.
== END 2019-12-27 15:26 | disposition home or self-care (01) ==
LOC: ED 15:15
DX: I48.20 Chronic atrial fibrillation, unspecified (principal); I11.0 Hypertensive heart disease with heart failure; I50.9 Heart failure, unspecified; J44.9 Chronic obstructive pulmonary disease, unspecified; F17.200 Nicotine dependence, unspecified, uncomplicated; Z86.73 Personal history of transient ischemic attack (TIA), and cerebral infarction without residual deficits; Z59.0 Homelessness
CPT/HCPCS: 36415; 71045; 80048; 82040; 84484; 85025; 93005; 99285

== ENCOUNTER 2020-01-29 07:00 | Emergency (ER) | payer MEDICAID ==
[~2020-01-29] VITALS: Ht 167.6 cm; Wt 95.6 kg
--- NOTE | 2020-01-29 07:23 | NUR ---
EKG AT BS
--- NOTE | 2020-01-29 07:36 | NUR ---
U/S AT [facility]. LAINA PROVIDED TO PT.
[2020-01-29 07:37] LABS: BASOPHILS # (AUTO) 0.06 x10^3/uL (0-0.1); BASOPHILS % (AUTO) 1 % (0-1); EOSINOPHILS # (AUTO) 0.13 x10^3/uL (0-0.4); EOSINOPHILS % (AUTO) 1 % (1-7); LYMPHOCYTES # (AUTO) 1.07 x10^3/uL (1-3.4); LYMPHOCYTES % (AUTO) 11 % (22-44); MD NO; MEAN CORPUSCULAR HEMOGLOBIN 31.1 pg (27.5-34.5); MEAN CORPUSCULAR HGB CONC 33.1 g/dL (33.2-36.2); MEAN CORPUSCULAR VOLUME 94.1 fL (81-97); MEAN PLATELET VOLUME 7.2 fL (7.4-10.4); MONOCYTES # (AUTO) 0.71 x10^3/uL (0.2-0.8); MONOCYTES % (AUTO) 7 % (2-9); NEUTROPHILS # (AUTO) 7.75 x10^3/uL (1.8-6.8); NEUTROPHILS % (AUTO) 80 % (42-75); PLATELET COUNT 278 x10^3/uL (130-400); RED BLOOD COUNT 4.34 x10^6/uL (4.38-5.82); RED CELL DISTRIBUTION WIDTH 17.1 % (9.4-14.8)
[2020-01-29 07:51] LABS: ALBUMIN 3.1 g/dL (3.4-5.0); ANION GAP 6 mmol/L (5-15); CALCIUM 8.9 mg/dL (8.5-10.1); CHLORIDE 110 mmol/L (98-107); CREATININE 1.03 mg/dL (0.7-1.3)
[2020-01-29 07:54] LABS: TROPONIN I < 0.015 ng/mL (0.000-0.045)
[2020-01-29] MEDS ORDERED: COLCHICINE 0.6 MG CAPSULE ONE (08:15)
[2020-01-29] MEDS ORDERED: HYDROcodone/APAP 10/325 MG TABLET ONE (08:15)
--- NOTE | 2020-01-29 08:20 | NUR ---
PT MEDICATED PER EMAR
[2020-01-29] MEDS ORDERED: HYDROcodone/APAP 10/325 MG TABLET PO ONE (08:30)
[2020-01-29] MEDS ORDERED: COLCHICINE 0.6 MG CAPSULE PO ONE (08:30)
[2020-01-29 09:38] VITALS: BP 174/91
--- NOTE | 2020-01-29 09:39 | NUR ---
REPORTS IMPROVEMENT IN PAIN. LT FOOT: 3/10, RT FOOT: 6
== END 2020-01-29 10:05 | disposition home or self-care (01) ==
LOC: ED 08:00
DX: M10.00 Idiopathic gout, unspecified site (principal); Z76.0 Encounter for issue of repeat prescription; I11.0 Hypertensive heart disease with heart failure; I50.9 Heart failure, unspecified; J44.9 Chronic obstructive pulmonary disease, unspecified; I48.91 Unspecified atrial fibrillation; Z91.14 Patient's other noncompliance with medication regimen; Z72.9 Problem related to lifestyle, unspecified; F17.290 Nicotine dependence, other tobacco product, uncomplicated; Z86.73 Personal history of transient ischemic attack (TIA), and cerebral infarction without residual deficits
CPT/HCPCS: 36415; 71045; 80048; 82040; 83880; 84484; 84550; 85025; 93005; 93970; 99285

== ENCOUNTER 2020-07-02 16:02 | Inpatient (IN) | payer MEDICAID ==
[~2020-07-02] VITALS: Ht 167.6 cm; Wt 94.7 kg
[~2020-07-02 16:02] MED LIST changes: -PANT40TA5 PO; +PANT40TA6 PO
--- NOTE | 2020-07-02 16:13 | NUR ---
PT BIB EMS FOR GOUT FLARE UP. PT ADMITS TO DRINKING TODAY. HX OF COPD, CHF, STROKE, AFIB. PT HAS EXPIRATORY WHEEZES. PT IS ON 3 LITERS. UP FROM HIS NORMAL 2 LITERS. PT RESTING IN [facility]. AWAITING
[2020-07-02 16:56] LABS: BASOPHILS # (AUTO) 0.06 x10^3/uL (0-0.1); BASOPHILS % (AUTO) 1 % (0-1); EOSINOPHILS # (AUTO) 0.03 x10^3/uL (0-0.4); EOSINOPHILS % (AUTO) 0 % (1-7); LYMPHOCYTES # (AUTO) 0.95 x10^3/uL (1-3.4); LYMPHOCYTES % (AUTO) 14 % (22-44); MD NO; MEAN CORPUSCULAR HEMOGLOBIN 30.4 pg (27.5-34.5); MEAN CORPUSCULAR HGB CONC 32.8 g/dL (33.2-36.2); MEAN PLATELET VOLUME 7.3 fL (7.4-10.4); MONOCYTES % (AUTO) 10 % (2-9); NEUTROPHILS # (AUTO) 5.06 x10^3/uL (1.8-6.8); NEUTROPHILS % (AUTO) 75 % (42-75); PLATELET COUNT 226 x10^3/uL (130-400); RED BLOOD COUNT 4.69 x10^6/uL (4.38-5.82)
[2020-07-02] MEDS ORDERED: SODIUM CHLORIDE FLUSH 10ML SYR IVF ONE (17:00)
[2020-07-02 17:11] LABS: ALANINE AMINOTRANSFERASE 22 U/L (12-78); ANION GAP 12 mmol/L (5-15); CALCIUM 8.1 mg/dL (8.5-10.1); CHLORIDE 108 mmol/L (98-107); CREATININE 1.22 mg/dL (0.7-1.3)
[2020-07-02 17:15] LABS: ALKALINE PHOSPHATASE 150 U/L (45-117); BILIRUBIN,TOTAL 0.3 mg/dL (0.2-1.0); TOTAL PROTEIN 7.1 g/dL (6.4-8.2); TROPONIN I 0.027 ng/mL (0.000-0.045)
--- NOTE | 2020-07-02 17:17 | NUR ---
TASK RN NOTE: PT RESTING COMFORTABLY WITH EYES CLOSED ASLEEP IN BED. NAD NOTED AT THIS TIME. RESULTS BACK. PT UP FOR RECHECK.
--- NOTE | 2020-07-02 17:36 | NUR ---
TASK RN NOTE: ERMD UPDATED ON PT'S STATUS WITH SOME LABORED AND WHEEZING RESPIRATIONS. AWAITING FURTHER ORDERS.
--- NOTE | 2020-07-02 18:24 | NUR ---
IV STARTED. PT RESTING IN [facility]. PT TBADM
[2020-07-02 19:38] VITALS: BP 156/82
[2020-07-02] MEDS ORDERED: ONDANSETRON 2MG/ML, 2ML IVPush PRN (21:00)
[2020-07-02] MEDS ORDERED: PROMETHAZINE 25 MG/ML, 1ML IM PRN (21:00)
[2020-07-02] MEDS ORDERED: hydrALAzine 20 MG/ML, 1ML IVPush PRN (21:00)
[2020-07-02] MEDS ORDERED: LORazepam 1MG TABLET PO PRN ×4 (21:00)
[2020-07-02] MEDS ORDERED: DOCUSATE 100 MG CAPSULE PO PRN (21:00)
[2020-07-02] MEDS ORDERED: Enoxaparin 1 mg/kg protocol SQ SCH (21:00)
[2020-07-02] MEDS ORDERED: LORazepam 2 MG/ML, 1ML IV PRN ×5 (21:00)
[2020-07-02] MEDS ORDERED: ONDANSETRON ODT 4 MG PO PRN (21:00)
[2020-07-02] MEDS ORDERED: OXYcodone IR 5MG TABLET PO PRN (21:00)
[2020-07-02] MEDS ORDERED: LORazepam 0.5MG TABLET PO PRN (21:00)
[2020-07-02] MEDS ORDERED: POLYETHYLENE GLYCOL 17 GM PACKET PO PRN (21:00)
[2020-07-02] MEDS ORDERED: morphine SULFATE 10 MG/ML, 1ML IVPush PRN (21:00)
[2020-07-02] MEDS ORDERED: BISACODYL 10 MG SUPP PR PRN (21:00)
[2020-07-02 21:29] LABS: FREE T4 (FREE THYROXINE) 1.16 ng/dL (0.76-1.46)
[2020-07-02 21:45] VITALS: BP 154/82
[2020-07-02] MEDS: COLCHICINE 0.6 MG CAPSULE PO SCH (21:48)
[2020-07-02] MEDS: FUROSEMIDE 20 MG/2 ML IV SCH (21:48)
[2020-07-02] MEDS: ENOXAPARIN 100 MG/ML SQ SCH (21:48)
[2020-07-02 22:33] VITALS: BP 144/82
[2020-07-02] MEDS: METOPROLOL SUCCINATE 50 MG TAB.ER.24H PO SCH (22:35)
[2020-07-03 01:42] VITALS: BP 149/86
[2020-07-03 05:20] LABS: BASOPHILS # (AUTO) 0.03 x10^3/uL (0-0.1); BASOPHILS % (AUTO) 0 % (0-1); EOSINOPHILS # (AUTO) 0.04 x10^3/uL (0-0.4); EOSINOPHILS % (AUTO) 1 % (1-7); LYMPHOCYTES # (AUTO) 0.93 x10^3/uL (1-3.4); LYMPHOCYTES % (AUTO) 14 % (22-44); MD NO; MEAN CORPUSCULAR HEMOGLOBIN 30.2 pg (27.5-34.5); MEAN CORPUSCULAR HGB CONC 32.5 g/dL (33.2-36.2); MEAN PLATELET VOLUME 7.4 fL (7.4-10.4); MONOCYTES # (AUTO) 0.73 x10^3/uL (0.2-0.8); MONOCYTES % (AUTO) 11 % (2-9); NEUTROPHILS # (AUTO) 4.71 x10^3/uL (1.8-6.8); NEUTROPHILS % (AUTO) 73 % (42-75); PLATELET COUNT 224 x10^3/uL (130-400); RED BLOOD COUNT 4.98 x10^6/uL (4.38-5.82); RED CELL DISTRIBUTION WIDTH 19.9 % (9.4-14.8)
[2020-07-03 05:30] LABS: CHLORIDE 109 mmol/L (98-107)
[2020-07-03 05:37] LABS: ALANINE AMINOTRANSFERASE 25 U/L (12-78); ALBUMIN 3.3 g/dL (3.4-5.0); ALKALINE PHOSPHATASE 164 U/L (45-117); ANION GAP 8 mmol/L (5-15); BILIRUBIN,TOTAL 0.4 mg/dL (0.2-1.0); CALCIUM 8.5 mg/dL (8.5-10.1); CHOLESTEROL, TOTAL 165 mg/dL (140-239); CREATININE 1.35 mg/dL (0.7-1.3); HDL CHOLESTEROL (DIRECT) 53 mg/dL (40-60); TOTAL PROTEIN 7.6 g/dL (6.4-8.2); TRIGLYCERIDES 127 mg/dL (50-200); VLDL CHOLESTEROL 25 mg/dL (0-25)
[2020-07-03 05:38] LABS: CHOL/HDL RATIO 3.1; HDL CHOL % 32 % (26-37); LDL CHOLESTEROL,CALCULATED 87 mg/dL (54-169); LDL/HDL RATIO 1.6 (0.5-3.0)
[2020-07-03 07:00] VITALS: BP 186/140
[2020-07-03] MEDS: ENOXAPARIN 100 MG/ML SQ SCH (08:08)
[2020-07-03] MEDS: MULTIVITAMIN 1 TABLET PO SCH (08:09)
[2020-07-03] MEDS: METOPROLOL SUCCINATE 50 MG TAB.ER.24H PO SCH (08:09)
[2020-07-03] MEDS: COLCHICINE 0.6 MG CAPSULE PO SCH (08:09)
[2020-07-03] MEDS: FUROSEMIDE 20 MG/2 ML IV SCH ×2 (08:10→16:36)
[2020-07-03 10:32] VITALS: BP 154/109
[2020-07-03 13:04] VITALS: BP 137/75
[2020-07-03] MEDS: ENOXAPARIN 40 MG/0.4 ML SQ SCH (19:27)
[2020-07-03 21:20] VITALS: BP 167/105
[2020-07-04] VITALS (7 sets, daily range): BP systolic 133–161; BP diastolic 66–106
[2020-07-04 05:05] LABS: ANION GAP 5 mmol/L (5-15); CALCIUM 8.8 mg/dL (8.5-10.1); CHLORIDE 106 mmol/L (98-107); CREATININE 1.24 mg/dL (0.7-1.3)
[2020-07-04] MEDS: METOPROLOL SUCCINATE 50 MG TAB.ER.24H PO SCH (05:16)
[2020-07-04] MEDS: MULTIVITAMIN 1 TABLET PO SCH (08:03)
[2020-07-04] MEDS: FUROSEMIDE 20 MG/2 ML IV SCH ×2 (08:03→16:38)
[2020-07-04] MEDS: COLCHICINE 0.6 MG CAPSULE PO SCH (08:03)
[2020-07-04] MEDS: ENOXAPARIN 40 MG/0.4 ML SQ SCH (17:54)
[2020-07-05 00:37] VITALS: BP 153/99
[2020-07-05 05:15] VITALS: BP 146/80
[2020-07-05] MEDS: METOPROLOL SUCCINATE 50 MG TAB.ER.24H PO SCH (05:18)
[2020-07-05 05:47] LABS: ANION GAP 6 mmol/L (5-15); CALCIUM 8.8 mg/dL (8.5-10.1); CHLORIDE 105 mmol/L (98-107); CREATININE 1.55 mg/dL (0.7-1.3)
[2020-07-05 07:46] VITALS: BP 143/94
[2020-07-05] MEDS: FUROSEMIDE 20 MG/2 ML IV SCH ×2 (07:50→17:00)
[2020-07-05] MEDS: MULTIVITAMIN 1 TABLET PO SCH (07:50)
[2020-07-05] MEDS: COLCHICINE 0.6 MG CAPSULE PO SCH (07:50)
[2020-07-05] MEDS ORDERED: LORazepam 0.5MG TABLET PO PRN (13:30)
[2020-07-05 14:07] VITALS: BP 164/110
[2020-07-05] MEDS ORDERED: GUAIFENESIN ER 600 MG TABLET PO PRN (18:00)
[2020-07-05] MEDS: ENOXAPARIN 40 MG/0.4 ML SQ SCH (18:02)
[2020-07-05 19:34] VITALS: BP 161/82
[2020-07-06 00:28] VITALS: BP 148/104
[2020-07-06] MEDS: METOPROLOL SUCCINATE 50 MG TAB.ER.24H PO SCH ×2 (06:30→07:28)
[2020-07-06 06:55] LABS: CHOL/HDL RATIO 3.7; LDL/HDL RATIO 2.2 (0.5-3.0)
[2020-07-06 07:23] VITALS: BP_SYST 153; BP_DIAS 101; BP_DIAS 94
[2020-07-06] MEDS: FUROSEMIDE 20 MG/2 ML IV SCH (07:28)
[2020-07-06] MEDS ORDERED: SPIR25TA PO (08:59)
[2020-07-06] MEDS ORDERED: METO-93 PO (08:59)
[2020-07-06] MEDS ORDERED: LISI-167 PO (08:59)
[2020-07-06] MEDS ORDERED: RIVA20TA PO (08:59)
[2020-07-06] MEDS ORDERED: FURO40TA6 PO (08:59)
[2020-07-06] MEDS ORDERED: REGADENOSON 0.4 MG/5 ML SYRINGE ONE (09:20)
[2020-07-06] MEDS: COLCHICINE 0.6 MG CAPSULE PO SCH (11:50)
[2020-07-06] MEDS: MULTIVITAMIN 1 TABLET PO SCH (11:50)
[2020-07-06 13:05] VITALS: BP 123/86
== END 2020-07-06 15:50 | disposition home or self-care (01) | DRG 291 ==
LOC: ED 17:42 → EDIP 17:43 → ED 18:03 → 4WST 19:02 → DCLOUNGE 07-06 15:20
PROVIDERS: ADMIT Internal Medicine; ATTEND Hospitalist
DX: I13.0 Hypertensive heart and chronic kidney disease with heart failure and stage 1 through stage 4 chronic kidney disease, or unspecified chronic kidney disease (principal); I50.43 Acute on chronic combined systolic (congestive) and diastolic (congestive) heart failure; D68.59 Other primary thrombophilia; F10.239 Alcohol dependence with withdrawal, unspecified; I48.20 Chronic atrial fibrillation, unspecified; I42.9 Cardiomyopathy, unspecified; F10.229 Alcohol dependence with intoxication, unspecified; F17.200 Nicotine dependence, unspecified, uncomplicated; I08.1 Rheumatic disorders of both mitral and tricuspid valves; I25.10 Atherosclerotic heart disease of native coronary artery without angina pectoris; I27.20 Pulmonary hypertension, unspecified; J44.9 Chronic obstructive pulmonary disease, unspecified; N18.3 Chronic kidney disease, stage 3 (moderate); R09.02 Hypoxemia; Z59.0 Homelessness; Z86.73 Personal history of transient ischemic attack (TIA), and cerebral infarction without residual deficits; Z91.19 Patient's noncompliance with other medical treatment and regimen; Z88.8 Allergy status to other drugs, medicaments and biological substances; Z91.018 Allergy to other foods
CPT/HCPCS: 36415; 71045; 78452; 80048; 80053; 80061; 80307; 83036; 83735; 83880; 84100; 84439; 84443; 84484; 84550; 85025; 93005; 93017; 93306; G0378; J1650; J2785; Q0162; A9502; J1940